=== PATIENT | male | born 1980 | race Caucasian/White ===

== ENCOUNTER 2020-01-07 10:16 | Outpatient (CLI) | payer MEDICARE, SELFPAY ==
[2020-01-07 10:58] LABS: Basophils Absolute Auto 0.03 K/mm3 (0.00-0.10); Basophils Percent Auto 0.4 % (0.0-1.0); Eosinophils Absolute Auto 0.07 K/mm3 (0.02-0.50); Hematocrit 37.9 % (40.0-54.0); Hemoglobin 12.6 g/dL (14.0-18.0); Immature Granulocyte Absolute 0.03 K/mm3 (0.00-0.00); Immature Granulocyte Percent A 0.4 % (0.0-0.0); Lymphocytes Absolute Auto 0.96 K/mm3 (1.10-4.50); Lymphocytes Percent Auto 13.4 % (18.0-42.0); Mean Corpuscular HGB Conc 33.2 g/dL (32.0-36.0); Mean Corpuscular Hemoglobin 30.9 pg (27.0-31.0); Mean Corpuscular Volume 92.9 fL (78.0-102.0); Mean Platelet Volume 8.8 fl (8.7-11.0); Monocytes Absolute Auto 0.48 K/mm3 (0.10-0.90); Monocytes Percent Auto 6.7 % (2.0-11.0); Neutrophils Absolute Auto 5.6 K/mm3 (1.7-7.2); Neutrophils Percent Auto 78.1 % (50.0-70.0); Platelet Count Result 226 K/mm3 (150-420); Red Blood Count 4.08 M/mm3 (4.70-6.10); Red Cell Distribution Width 17.2 % (11.6-14.4); White Blood Count 7.2 K/mm3 (4.8-10.8)
[2020-01-07 11:33] LABS: Alanine Aminotransferase 30 U/L (16-63); Albumin Level 3.8 g/dL (3.4-5.0); Alkaline Phosphatase 75 U/L (46-116); Anion Gap 17.3 mmol/L (7-16); Aspartate Amino Transferase 67 U/L (15-37); Bilirubin,Total 0.7 mg/dL (0.00-1.00); Blood Urea Nitrogen 10 mg/dL (7-18); Calcium 9.2 mg/dL (8.5-10.1); Carbon Dioxide 24 mmol/L (21-32); Chloride 95 mmol/L (98-108); Estimated Glomerular Filt Rate > 60; Glucose 87 mg/dL (70-99); Lactate Dehydrogenase 167 U/L (85-227); Osmolality Calculated 272 mOsm/kg (285-295); Potassium 4.3 mmol/L (3.5-5.1); Sodium 132 mmol/L (136-145); Total Protein 7.7 g/dL (6.4-8.2)
[2020-01-11 03:38] LABS: HCG Tumor Marker <2 mIU/mL (<5)
[2020-01-13 20:57] LABS: Alpha Fetoprotein Tumor Marker 2.3 ng/mL (<6.1)
== END 2020-01-07 10:17 | disposition home or self-care (01) ==
LOC: CHSLAB 10:21
PROVIDERS: PCP Family Medicine; Visit Provider Internal Medicine Hematology & Oncology
DX: C62.90 Malignant neoplasm of unspecified testis, unspecified whether descended or undescended (principal)
CPT/HCPCS: 36415; 80053; 82105; 83615; 84702; 85025; 85055

== ENCOUNTER 2021-03-14 12:04 | Outpatient (CLI) | payer MEDICAID, SELFPAY ==
--- NOTE | ~2021-03-14 | XR_ITS ---
XR_CERV2-3V_CR DATE: 03/14/2021 12:58 INDICATION: Neck and back pain since neck and back surgery 4 years ago TECHNIQUE: AP, open-mouth, lateral views COMPARISON: 06/11/2017 CT cervical spine 03/14/2021 thoracic spine including swimmer's view FINDINGS: There is straightening of the cervical spine. C1 and C2 are normally aligned and the odontoid process is intact. Normal alignment of the cervical spine. No fracture or dislocation or locked facet. There is moderate degenerative disc disease and associated mild retrolisthesis at C5-6. IMPRESSION: Moderate C5-6 degenerative disc disease with mild retrolisthesis Straightening Reviewed, dictated and finalized at [facility]. Reviewed, dictated and finalized at location [facility].
--- NOTE | ~2021-03-14 | XR_ITS ---
XR thoracic spine 3V DATE: 03/14/2021 12:58 INDICATION: Back pain since neck and back surgery 4 years ago TECHNIQUE: AP, lateral, swimmer views COMPARISON: 12/24/2017 CT thorax abdomen pelvis 03/14/2021 lumbar spine FINDINGS: Bilateral thoracic spinal rods extend from T6 into the lumbar spine. Mild levoscoliosis of the thoracolumbar spine. Interbody prosthesis and plate and screws provide surgical fusion at T11-L1, bridging vertebra plana at T12. Chronic T8 compression fracture deformity. No interval fracture or bone destruction is evident. No paraspinal soft tissue thickening is noted. Right Port-A-Cath catheter tip overlies upper right atrium. IMPRESSION: Chronic stable T8 compression fracture Bilateral thoracolumbar spinal rods and T11-L1 surgical fusion, bridging T12 vertebra plana Reviewed, dictated and finalized at location [facility]. IMPRESSION: Chronic stable T8 compression fracture Bilateral thoracolumbar spinal rods and T11-L1 surgical fusion, bridging T12 ve rtebra plana
--- NOTE | ~2021-03-14 | XR_ITS ---
XR lumbar spine 2-3V DATE: 03/14/2021 12:58 INDICATION: Back pain since neck and back surgery 4 years ago TECHNIQUE: AP, lateral, coned lateral lumbosacral views COMPARISON: 03/14/2017 thoracic spine 12/24/2017 CT thorax abdomen pelvis There is some lucency surrounding the pedicle screws at L2 and L3 which may indicate some loosening. FINDINGS: Bilateral spinal rods extend from the thoracic spine to L3. Status post surgical fusion at T11-L1, bridging vertebra plana T12. Moderate compression fracture of L2. Moderate degenerative disc disease at L4-5. Minimal lumbar dextroscoliosis. No recent fracture or bone destruction. The sacroiliac joints are intact. IVC filter at L2 level. IMPRESSION: Thoracolumbar spinal rods and pedicle screws; lucency surrounding the pedicle screws at L 2 and L3 may indicate loosening Status post surgical fusion at T11-T12, bridging vertebra plana at T12 Moderate degenerative disc disease at L4-5 Diffuse osteopenia Minimal dextroscoliosis Reviewed, dictated and finalized at location [facility]. IMPRESSION: Thoracolumbar spinal rods and pedicle screws; lucency surrounding t he pedicle screws at L2 and L3 may indicate loosening Status post surgical fusion at T11-T12, bridging vertebra plana at T12 Moderate degenerative disc disease at L4-5 Diffuse osteopenia Minimal dextroscoliosis
== END 2021-03-14 12:05 | disposition home or self-care (01) ==
LOC: CHSIMG 12:08
PROVIDERS: PCP Family Medicine; Visit Provider Physician Assistant
DX: M54.9 Dorsalgia, unspecified (principal)
CPT/HCPCS: 72040; 72072; 72100

== ENCOUNTER 2021-06-22 08:13 | Inpatient (IN) | payer MEDICAID, SELFPAY ==
--- NOTE | ~2021-06-22 | CT_ITS ---
EXAMINATION: CTA chest PE protocol DATE: 06/22/2021 11:00 INDICATION: Cough and shortness of breath. Testicular cancer. TECHNIQUE: Computed tomography angiography (CTA) of the chest was performed with 100 mL Omnipaque-350 intravenous contrast timed to evaluate the pulmonary arteries. Coronal maximum intensity projection 3D-reconstructions were created by the technologist. Automated exposure control and iterative reconst ruction technique were employed. The dose-length product was 260.84 mGy-cm. COMPARISON: Chest CT 12/24/2017, 07/21/15 FINDINGS: There are small scattered chronic small airspace and groundglass opacities in right lung wi th architectural distortion, consistent with scarring. There is a chronic nodule with central calcifi cation in perihilar right upper lobe, consistent with scarring from treated metastatic disease. There is chronic pleural thickening in right posterior costophrenic angle. No pleural effusion. The heart size is normal. No pericardial effusion. There is no pulmonary embolus. There is a chronic 9 mm mass of peripherally calcified thrombus in right superior pulmonary vein. There is bilateral gynecomastia. There is a right internal jugular port with tip at superior cavoatrial junction. There is fluid in t he esophagus. There is diffuse hepatic steatosis. There are gallstones in the gallbladder. There is f at stranding around the pancreas. There are changes of posterior fusion procedure from T6 to the lumb ar spine. There is lucency around the pedicle screws in T6, T7, T9, and T10. There is a chronic burst fracture of T8 with 3/5 loss of height. There is a chronic compression fracture of T7 with 1/5 loss of height. There is a chronic compression fracture of T11 with 2/5 loss of height. There are changes of anterior fusion procedure from T11 to L1 with device between T11 and L1 and left-sided plate and s crews. IMPRESSION: 1. Partially visualized fat stranding around the pancreas, likely pancreatitis. 2. No pulmonary embolus. 3. Stable multifocal scarring in right lung. 4. Chronic calcified thrombus in right superior pulmonary vein. 5. Posterior fusion procedure in thoracolumbar spine with worsened lucencies around the pedicle screw s in thoracic spine, consistent with loosening versus infection. Reviewed, dictated and finalized at location A. IMPRESSION: 1. Partially visualized fat stranding around the pancreas, likely pancreatitis. 2. No pulmonary embolus. 3. Stable multifocal scarring in right lung. 4. Chronic calcified thrombus in right superior pulmonary vein. 5. Posterior fusion procedure in thoracolumbar spine with worsened lucencies ar ound the pedicle screws in thoracic spine, consistent with loosening versus inf ection.
--- NOTE | ~2021-06-22 | XR_ITS ---
EXAMINATION: XR chest 1V portable EXAM DATE: 06/22/2021 09:41 INDICATION: Cough, nausea vomiting, weakness. Symptoms 3 days. Possible COVID pneumonia. TECHNIQUE: Portable AP frontal chest x-ray was obtained. Comparison is made to prior examination from 06/11/2017. FINDINGS: Right-sided portacatheter. Thoracolumbar Jimenez rods. Right lung volume loss, likely co mbination of partial pneumonectomy and scarring. No discrete right lung nodules/masses less well appr eciated on this examination. Left lung is clear, no evidence of acute airspace disease. No pneumothor ax or pleural effusion. IMPRESSION: Chronic appearing lung findings. Reviewed, dictated and finalized at location A.
[2021-06-22 08:25] VITALS: BP 120/88; PULSE 120; RESP 20; TEMP 36.6; O2SAT 98
--- NOTE | 2021-06-22 08:45 | ECG_ITS ---
Measurements Intervals [place] Rate: 127 P: 32 AL: 204 QRS: 54 QRSD: 80 T: 30 QT: 398 QTc: 581 Interpretive Statements SINUS TACHYCARDIA MINIMAL Q WAVES- INFERIOR LEADS BORDERLINE ST ABNORMALITY- ANTERIOR LEADS BASELINE ARTIFACT- I, II, III, AVR, AVL, AVF, V5-V6 ABNORMAL ECG Electronically Signed On 06-22-2021 13:00:51 CDT by Enrico Case D.O.
--- NOTE | 2021-06-22 08:48 | PC.NURSE ---
RN CONTACTED PCP OFFICE AT THIS TIME TO REQUEST PMH, PSH, AND MEDICATION LIST
[2021-06-22] MEDS: SODIUM CHLORIDE 0.9% IV 1,000 ML 999 ML IV CONT ×2 (09:20→14:11)
[2021-06-22] MEDS: ONDANSETRON INJ 4 MG/2 ML VIAL IV PUSH ×2 (09:20→14:18)
[2021-06-22 09:33] LABS: Basophils Absolute Auto 0.02 K/mm3 (0.00-0.10); Basophils Percent Auto 0.1 % (0.0-1.0); Hematocrit 35.7 % (40.0-54.0); Hemoglobin 11.6 g/dL (14.0-18.0); Immature Granulocyte Absolute 0.07 K/mm3 (0.00-0.00); Immature Granulocyte Percent A 0.4 % (0.0-0.0); Lymphocytes Absolute Auto 0.52 K/mm3 (1.10-4.50); Lymphocytes Percent Auto 3.1 % (18.0-42.0); Mean Corpuscular HGB Conc 32.5 g/dL (32.0-36.0); Mean Corpuscular Hemoglobin 33.2 pg (27.0-31.0); Mean Corpuscular Volume 102.3 fL (78.0-102.0); Mean Platelet Volume 9.8 fl (8.7-11.0); Monocytes Absolute Auto 0.33 K/mm3 (0.10-0.90); Neutrophils Absolute Auto 15.7 K/mm3 (1.7-7.2); Neutrophils Percent Auto 94.4 % (50.0-70.0); Nucleated Red Blood Cells Absolute Auto 0.04 K/mm3 (0.00-0.00); Nucleated Red Blood Cells Perc 0.2 % (0-0.0); Platelet Count Result 354 K/mm3 (150-420); Red Blood Count 3.49 M/mm3 (4.70-6.10); Red Cell Distribution Width 23.3 % (11.6-14.4); White Blood Count 16.7 K/mm3 (4.8-10.8)
[2021-06-22 09:51] LABS: D Dimer 1.07 mg/L (0.19-0.50)
[2021-06-22 09:52] LABS: SARS-CoV-2 Ag Negative (Negative)
[2021-06-22 09:54] LABS: Alanine Aminotransferase 36 U/L (16-63); Albumin Level 3.5 g/dL (3.4-5.0); Alkaline Phosphatase 139 U/L (46-116); Anion Gap 24 mmol/L (8-16); Aspartate Amino Transferase 104 U/L (15-37); Bilirubin,Total 2.6 mg/dL (0.00-1.00); Blood Urea Nitrogen 11 mg/dL (7-18); Calcium 9.7 mg/dL (8.5-10.1); Carbon Dioxide 30 mmol/L (21-32); Chloride 87 mmol/L (98-108); Estimated CRCL calculation 72 ml/min; Estimated Glomerular Filt Rate > 60; Glucose 133 mg/dL (70-99); NT Pro B Type Natriuretic Pept 2763 pg/mL (0-125); Osmolality Calculated 293 mOsm/kg (285-295); Potassium 2.6 mmol/L (3.5-5.1); Sodium 141 mmol/L (136-145); Total Protein 8.9 g/dL (6.4-8.2)
[2021-06-22] MEDS: PROMETHAZINE HCL 25 MG/ML AMPUL IM (09:55)
[2021-06-22 10:15] LABS: Lactic Acid Reflex 3.3 mmol/L (0.4-2.0)
--- NOTE | 2021-06-22 10:23 | ED.GENADULT ---
HPI - General Adult General Chief complaint: Upper Respiratory Infection Stated complaint: SOB VOMITING COUGH Source: patient Mode of arrival: ambulatory Limitations: no limitations History of Present Illness HPI narrative: Pt presents with complaints of cough, SOB, vomiting and feeling ill. He has not had fever. He has significant health issues, including stage 4 testicular cancer which has been in remission for several years. However, he has mets all over, and spinal issues from these, so he is very limited in his daily function. He is alert, but gagging and vomiting and coughing frequently. Onset (ago): day(s) (2) Quality: aching (generalized myaglias, mostly from vomiting) Pain Consistency: constant Relieving factors: none Exacerbating factors: none Associated symptoms: cough, loss of appetite, malaise, nausea/vomiting, shortness of breath and weakness Related Data Allergies Allergy/AdvReac Type Severity Reaction Status Date / Time nut - unspecified Allergy Anaphylaxis Verified 06/22/21 09:48 Penicillins Allergy Unknown Verified 06/22/21 09:48 Review of Systems Constitutional: Constitutional: Reports fatigue and Reports weakness Eyes: Eyes: Reports no additional eye complaints ENT: Reports nasal congestion and Reports sore throat Cardiovascular: Cardiovascular: Reports rapid heart rate Respiratory: Respiratory: Reports cough and Reports dyspnea Gastrointestinal: Gastrointestinal: Reports nausea and Reports vomiting Genitourinary: Genitourinary: Reports no additional male genitourinary complaints Musculoskeletal: Musculoskeletal: Reports back pain and Reports muscle cramps Integumentary/Breasts: Skin/Breast: Reports system reviewed and no additional complaints, except as docu Neurologic: Reports weakness Psychiatric: Psychiatric: Reports no additional psychiatric complaints Endocrine: Endocrine: Reports no additional endocrine complaints Hematologic/Lymphatic: Hematologic/Lymphatic: Reports no additional hematologic/lymphatic complaints Allergic/Immunologic: Allergic/Immunologic: Reports no additional allergic/immunologic complaints [facility] Past Medical History Medical History (Updated 06/22/21 @ 12:56 by Maureen Michael MD) Anxiety Depression HTN (hypertension) Lipoma Presence of IVC filter Pulmonary embolism Testicular cancer Surgical History Surgical History Back pain with history of spinal surgery Family History Family History Other Diabetes mellitus Hypertension Social History Social History (Updated 06/22/21 @ 10:33 by Maureen Michael MD) Smoking status: Never smoker Alcohol intake: never Substance use: never Exam Const: General: no acute distress, alert and ill appearing Nutritional Appearance: thin Orientation/consciousness: patient oriented x3 HENMT: Head: normal to inspection Eyes: Conjunctivae: conjunctivae normal Pupils: Equal, round and reactive pupils present Neck: Neck: normal visual inspection Chest: Chest palpation & inspection: normal inspection of the chest Resp: Effort & Inspection: normal respiratory effort Auscultation: clear to auscultation bilaterally Cardio: Rate: tachycardic Rhythm: regular rhythm GI: GI Palp: Yes Soft to palpation, No Tenderness to palpation present (GI), No Guarding due to palpation present (GI) and No Rigid due to palpation Auscultation: normal bowel sounds Skin: General skin exam: normal color Rashes: no rashes Neuro: General: patient oriented x3, moves all extremities, no meningeal signs, no focal motor deficits and CN's II-XI intact bilaterally Speech: normal speech Extrem: General: normal to inspection Psych: Appearance: grossly normal Mental Status: mental status grossly normal Thought content: Yes Normal thought content present Course Course Emergency Course: pt still vo
[2021-06-22 10:30] LABS: SARS-CoV-2 RNA PCR Negative (Negative)
[2021-06-22] MEDS: ACETAMINOPHEN 500 MG TABLET 1000 MG PO (10:33)
[2021-06-22 12:28] LABS: Lipase 3643 U/L (73-393)
--- NOTE | 2021-06-22 12:44 | PC.NURSE ---
RN REQUESTED ROOM FOR INPATIENT STATUS. SUSTAINABILITY OFFICER JESICA PROVIDED ROOM 227. REGISTRATION NOTIFIED.
[2021-06-22 12:56] LABS: Reflex Lactic Acid Yes or No Add Lactic
[2021-06-22] MEDS: ENOXAPARIN 40 MG/0.4 ML SYRINGE SUB-Q (13:00)
[2021-06-22 13:03] LABS: Erythrocyte Sedimentation Rate 48 mm/hr (0-15)
--- NOTE | 2021-06-22 13:07 | ECG_ITS ---
Measurements Intervals [place] Rate: 114 P: 71 TX: 166 QRS: 84 QRSD: 81 T: 74 QT: 364 QTc: 502 Interpretive Statements SINUS TACHYCARDIA VENTRICULAR COUPLETS AND VENTRICULAR BIGEMINY NONSPECIFIC T-WAVE ABNORMALITY- INF/LAT LEADS BASELINE ARTIFACT- I, II, III, AVR, AVL, AVF, V1 ABNORMAL ECG Electronically Signed On 06-22-2021 13:23:18 CDT by Enrico Case D.O.
--- NOTE | 2021-06-22 13:26 | PCNDS ---
Patient consumed [ ]% of [f his/her] [ ] diet without complaints status post [ ]. Weight remained stable during stay. [f he/she c] was discharged [ ]
--- NOTE | 2021-06-22 13:26 | PC.NURSE ---
TELEPHONE REPORT PROVIDED TO VANESSA MOONEY RN
[2021-06-22 13:27] LABS: Lactic Acid 1.7 mmol/L (0.4-2.0)
--- NOTE | 2021-06-22 13:29 | PM.IMHP ---
H&P: HPI History of Present Illness Date/Time: 06/22/21 13:29 this is a 41-year-old male that presented to emergency department with complaints of a cough, shortness of breath, vomiting, loss of appetite and decreased fluid intake and fatigue. Patient has a past medical history of anxiety, depression, hypertension, presence of IVC filter, pulmonary embolism, testicle cancer stage IV and metastatic disease. According the to the patient in his mother who is his caregiver for approximately 2 weeks he has been feeling fatigued, with abdominal pain uncontrolled vomiting. Patient does have chronic vomiting that he has had for approximately 5 years following his chemo treatments. Patient is WBC 16.7, hemoglobin 11.6, hematocrit 35.7, platelets 354, sed rate 48, D-dimer 1.07, sodium 141, potassium 2.6, BUN 11, creatinine 1.18, glucose 133, lactic acid 3.3, total bili 2.6, AST 104, ALT 36, BUN 2763, lipase 3643 Covid negative, chest x-ray no new findings, CTA indicates pancreatitis chronic thrombosis worsened lucencies around the pedicle screws in thoracic spine, consistent with loosening versus infection. Patient being admitted for pancreatitis, dehydration and infection. Patient remains fatigued with nausea vomiting and tenderness to his abdominal area Inpatient Time spent 60 minutes Disposition Home with self-care <NAZIA Peraza - Last Filed: 06/22/21 14:04> Chief Complaint: Nausea vomiting abdominal pain <NAZIA Peraza - Last Filed: 06/22/21 14:04> Review of Systems Review of Systems: A 14 organ system Review of Systems was performed and pertinent positives included in the HPI, otherwise remaining ROS is negative. <NAZIA Peraza - Last Filed: 06/22/21 14:04> [facility] Past Medical History Medical History: Medical History (Updated 06/22/21 @ 13:56 by NAZIA Peraza) Anxiety Depression HTN (hypertension) Lipoma Presence of IVC filter Pulmonary embolism Testicular cancer <NAZIA Peraza - Last Filed: 06/22/21 14:04> Surgical History Surgical History: Surgical History Back pain with history of spinal surgery <NAZIA Peraza - Last Filed: 06/22/21 14:04> Family History Family History: Family History Other Diabetes mellitus Hypertension <NAZIA Peraza - Last Filed: 06/22/21 14:04> Social History Social History: Social History (Updated 06/22/21 @ 10:33 by Maureen Michael MD) Smoking status: Never smoker Alcohol intake: former Substance use: unknown Substance use type: marijuana and painkillers Gender identity (if verbalized by the patient): Male Spiritual care concerns: No <NAZIA Peraza - Last Filed: 06/22/21 14:04> Meds Home Medications and Allergies Home medications: Home Medications Medication Instructions Recorded Confirmed Type ondansetron HCl [Zofran] 4 mg PO Q8H PRN 06/22/21 06/22/21 History sertraline 50 mg PO DAILY 06/22/21 06/22/21 History <Octavianodane DerekLYDIA ParkerMariangel - Last Filed: 06/22/21 14:04> Allergies/Adverse reactions: Allergies Allergy/AdvReac Type Severity Reaction Status Date / Time nut - unspecified Allergy Anaphylaxis Verified 06/22/21 09:48 Penicillins Allergy Unknown Verified 06/22/21 09:48 <LYDIA PerazaTennilleElijah - Last Filed: 06/22/21 14:04> Vital Signs Vital Signs - 24 hr 06/22/21 08:25 Temperature 98 F Pulse Rate 120 H Respiratory Rate 20 Blood Pressure 120/88 Pulse Oximetry 98 <Susan DerekLYDIA ParkerTennille - Last Filed: 06/22/21 14:04> Exam Narrative: GENERAL: Malnutrition ill appearance male, in no apparent distress. HEAD: normocephalic, atraumatic. EYES: PERRL. Sclera clear/white. Vision is grossly intact. EARS: External ears normal, auditory canals clear and without drainage, TMs normal without perfor
[2021-06-22 13:34] VITALS: BP 125/83; PULSE 106; RESP 18; O2SAT 100
[2021-06-22] MEDS: HYDROmorphone HCL INJ (*CRX) 2 MG/ML VIAL 0.5 MG IV PUSH ×3 (14:19→21:22)
[2021-06-22] MEDS: KCL 20 MEQ/SW 100 ML 100 ML 50 MEQ IVPB ×3 (14:22→23:52)
[2021-06-22] MEDS: SODIUM CHLORIDE 0.9% IV 1,000 ML 100 ML IV CONT (15:22)
[2021-06-22] MEDS: PANTOPRAZOLE SODIUM IV 40 MG VIAL IV PUSH (15:39)
[2021-06-22 16:00] VITALS: BP 117/84; PULSE 125; PULSE 128; RESP 18; TEMP 36.3; O2SAT 99
[2021-06-22] MEDS: METOCLOPRAMIDE HCL INJ 10 MG/2 ML VIAL IV PUSH ×2 (17:19→23:37)
--- NOTE | 2021-06-22 18:42 | PC.NURSE ---
18:40 Patient reports to drink 3-4 glasses of wine or vodka about 4-5 times per week. --Bert CANO
[2021-06-22 20:00] VITALS: BP 127/88; PULSE 138; RESP 20; TEMP 36.3; O2SAT 99
[2021-06-22 20:28] LABS: Amphetamine Screen Urine Negative (Negative); Barbiturate Screen Urine Negative (Negative); Benzodiazepines Screen Urine Negative (Negative); Cannabinoid Screen Urine Negative (Negative); Cocaine Screen Urine Negative (Negative); Methadone Screen Urine Negative (Negative); Opiate Screen Urine Positive (Negative); Phencyclidine Screen Urine Negative (Negative)
[2021-06-22] MEDS: diphenhydrAMINE HCl INJ 50 MG/ML VIAL 25 MG IV PUSH (21:00)
--- NOTE | 2021-06-22 22:45 | PC.NURSE ---
[id number] Nurse attempted to notify MD of current K+ level 3.0. MD in ER patient's room.
[2021-06-22] MEDS: SODIUM CHLORIDE 0.9% IV 1,000 ML 150 ML IV CONT (23:39)
[2021-06-22 23:47] VITALS: BP 120/91; PULSE 120; RESP 18; TEMP 36.7; O2SAT 97
[2021-06-23] MEDS: HYDROmorphone HCL INJ (*CRX) 2 MG/ML VIAL 0.5 MG IV PUSH ×5 (00:27→20:14)
[2021-06-23] MEDS: KCL 20 MEQ/SW 100 ML 100 ML 50 MEQ IVPB (02:00)
[2021-06-23 04:00] VITALS: BP 123/92; PULSE 114; RESP 18; TEMP 36.2; O2SAT 98
[2021-06-23 05:18] LABS: Hematocrit 28.2 % (40.0-54.0); Hemoglobin 9.3 g/dL (14.0-18.0); Mean Platelet Volume 9.8 fl (8.7-11.0); Platelet Count Result 147 K/mm3 (150-420); Red Blood Count 2.66 M/mm3 (4.70-6.10); Red Cell Distribution Width 23.3 % (11.6-14.4); White Blood Count 8.7 K/mm3 (4.8-10.8)
[2021-06-23 05:36] LABS: Lactic Acid Reflex 0.7 mmol/L (0.4-2.0)
[2021-06-23 05:40] LABS: Alanine Aminotransferase 26 U/L (16-63); Albumin Level 2.5 g/dL (3.4-5.0); Alkaline Phosphatase 92 U/L (46-116); Anion Gap 12 mmol/L (8-16); Aspartate Amino Transferase 56 U/L (15-37); Blood Urea Nitrogen 10 mg/dL (7-18); Calcium 7.8 mg/dL (8.5-10.1); Carbon Dioxide 31 mmol/L (21-32); Chloride 99 mmol/L (98-108); Estimated CRCL calculation 86 ml/min; Estimated Glomerular Filt Rate > 60; Glucose 67 mg/dL (70-99); Magnesium 1.1 mg/dL (1.8-2.4); Osmolality Calculated 291 mOsm/kg (285-295); Potassium 3.7 mmol/L (3.5-5.1); Sodium 142 mmol/L (136-145); Total Protein 6.6 g/dL (6.4-8.2)
[2021-06-23] MEDS: METOCLOPRAMIDE HCL INJ 10 MG/2 ML VIAL IV PUSH ×3 (05:51→16:32)
[2021-06-23 05:54] LABS: Lipase > 1500 U/L (73-393)
[2021-06-23] MEDS: SODIUM CHLORIDE 0.9% IV 1,000 ML 150 ML IV CONT ×3 (07:40→23:33)
[2021-06-23 08:00] VITALS: BP 118/96; PULSE 117; PULSE 123; RESP 16; TEMP 36.8; O2SAT 96
--- NOTE | 2021-06-23 09:01 | P.PN_ITS ---
Progress Note: A&P Assessment and Plan (1) Acute pancreatitis: Qualifiers: Acute pancreatitis complication: unspecified Pancreatitis type: alcohol induced Qualified Code(s): K85.20 - Alcohol induced acute pancreatitis without necrosis or infection Code(s): K85.90 - Acute pancreatitis without necrosis or infection, unspecified Status: Acute Assessment and Plan: * CT indicates pancreatitis * Continue IV hydration * Continue pain control * Lipase 3643>-->1500 * Repeat lipase in the a.m. * Remain n.p.o. we will advance diet when appropriate * According to family member patient has a history of alcohol use (2) HTN (hypertension): Code(s): I10 - Essential (primary) hypertension Status: Acute Assessment and Plan: * Blood pressure stable * Vital signs as ordered * Will adjust medication as needed (3) Hypokalemia: Code(s): E87.6 - Hypokalemia Status: Acute Assessment and Plan: * Potassium 2.6>3.0>3.7 * Or potassium 40 mEq x2 * Repeat potassium in the a.m. (4) Elevated WBCs: Code(s): D72.829 - Elevated white blood cell count, unspecified Status: Acute Assessment and Plan: * WBC 16.7>8.7 * Possibly secondary to infection versus pancreatitis * CMP in a.m. * Continue Rocephin and azithromycin day 2 * Blood culture pending (5) Elevated d-dimer: Code(s): R79.89 - Other specified abnormal findings of blood chemistry Status: Acute Assessment and Plan: * D-dimer 1.07 * CTA does not indicate PE * Patient has a history of PE * IVC filter in place (6) Elevated lactic acid level: Code(s): R79.89 - Other specified abnormal findings of blood chemistry Status: Acute Assessment and Plan: * Lactic acid3.3>1.7>0.7 * Possibly secondary to infection * Will continue IV fluids (7) Elevated AST (SGOT): Code(s): R74.01 - Elevation of levels of liver transaminase levels Status: Acute Assessment and Plan: * AST 104>56 * Possibly secondary to dehydration versus pancreatitis * We will closely monitor liver function test * According to family member patient has a history of alcohol use (8) Elevated brain natriuretic peptide (BNP) level: Code(s): R79.89 - Other specified abnormal findings of blood chemistry Status: Acute Assessment and Plan: * Elevated BNP 2763 * Chest x-ray does not indicate pulmonary embolism * We will closely monitor I's and O's (9) Thrombosis: Code(s): I82.90 - Acute embolism and thrombosis of unspecified vein Status: Acute Assessment and Plan: * 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 * Blood cultures pending * Continue Rocephin and azithromycin for possible infection * If hardware is loose patient will need to follow-up with orthopedic surgeon (11) Anxiety and depression: Code(s): F41.9 - Anxiety disorder, unspecified; F32.9 - Major depressive disorder, single episode, unspecified Status: Acute Assessment and Plan: * Started Ativan (12) Nausea & vomiting: Code(s): R11.2 - Nausea with vo
--- NOTE | 2021-06-23 09:01 | WPDPN ---
Progress Note: A&P Assessment and Plan (1) Acute pancreatitis: Qualifiers: Acute pancreatitis complication: unspecified Pancreatitis type: alcohol induced Qualified Code(s): K85.20 - Alcohol induced acute pancreatitis without necrosis or infection Code(s): K85.90 - Acute pancreatitis without necrosis or infection, unspecified Status: Acute Assessment and Plan: CT indicates pancreatitis Continue IV hydration Continue pain control Lipase 3643>-->1500 Repeat lipase in the a.m. Remain n.p.o. we will advance diet when appropriate According to family member patient has a history of alcohol use (2) HTN (hypertension): Code(s): I10 - Essential (primary) hypertension Status: Acute Assessment and Plan: Blood pressure stable Vital signs as ordered Will adjust medication as needed (3) Hypokalemia: Code(s): E87.6 - Hypokalemia Status: Acute Assessment and Plan: Potassium 2.6>3.0>3.7 Or potassium 40 mEq x2 Repeat potassium in the a.m. (4) Elevated WBCs: Code(s): D72.829 - Elevated white blood cell count, unspecified Status: Acute Assessment and Plan: WBC 16.7>8.7 Possibly secondary to infection versus pancreatitis CMP in a.m. Continue Rocephin and azithromycin day 2 Blood culture pending (5) Elevated d-dimer: Code(s): R79.89 - Other specified abnormal findings of blood chemistry Status: Acute Assessment and Plan: D-dimer 1.07 CTA does not indicate PE Patient has a history of PE IVC filter in place (6) Elevated lactic acid level: Code(s): R79.89 - Other specified abnormal findings of blood chemistry Status: Acute Assessment and Plan: Lactic acid3.3>1.7>0.7 Possibly secondary to infection Will continue IV fluids (7) Elevated AST (SGOT): Code(s): R74.01 - Elevation of levels of liver transaminase levels Status: Acute Assessment and Plan: AST 104>56 Possibly secondary to dehydration versus pancreatitis We will closely monitor liver function test According to family member patient has a history of alcohol use (8) Elevated brain natriuretic peptide (BNP) level: Code(s): R79.89 - Other specified abnormal findings of blood chemistry Status: Acute Assessment and Plan: Elevated BNP 2763 Chest x-ray does not indicate pulmonary embolism We will closely monitor I's and O's (9) Thrombosis: Code(s): I82.90 - Acute embolism and thrombosis of unspecified vein Status: Acute Assessment and Plan: 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 Blood cultures pending Continue Rocephin and azithromycin for possible infection If hardware is loose patient will need to follow-up with orthopedic surgeon (11) Anxiety and depression: Code(s): F41.9 - Anxiety disorder, unspecified; F32.9 - Major depressive disorder, single episode, unspecified Status: Acute Assessment and Plan: Started Ativan (12) Nausea & vomiting: Code(s): R11.2 - Nausea with vomiting, unspecified Status: Acute Assessment and Plan: Chronic Possibly worsening due to pancreatitis Started Zofran and Reglan Will continue IV fluids (13) Electrolyte imbalance: Code(s): E87.8 - Other disorders of electrolyte and fluid balance, not elsewhere classified Status: Acute Assessment and Plan: Magnesium 1.1 Supplement given Will repeat (14) Tachycardia: Code(s): R00.0 - Tachycardia, uns
[2021-06-23] MEDS: ENOXAPARIN 40 MG/0.4 ML SYRINGE SUB-Q (09:12)
[2021-06-23] MEDS: PANTOPRAZOLE SODIUM IV 40 MG VIAL IV PUSH (09:16)
[2021-06-23] MEDS: MAGNESIUM SULF 4 GM/WATER100ML 4 GM/100 ML BAG IVPB (09:24)
[2021-06-23 12:00] VITALS: BP 113/76; PULSE 110; PULSE 122; RESP 16; TEMP 36.6; O2SAT 100
[2021-06-23 16:00] VITALS: BP 107/91; PULSE 111; PULSE 116; RESP 16; TEMP 36.8; O2SAT 100
[2021-06-23 20:00] VITALS: BP 141/104; PULSE 112; PULSE 114; RESP 22; TEMP 36.6; O2SAT 99
[2021-06-23] MEDS: diphenhydrAMINE HCl INJ 50 MG/ML VIAL 25 MG IV PUSH (20:14)
[2021-06-24] VITALS: BP 133/94; PULSE 104; PULSE 105; RESP 18; TEMP 36.4; O2SAT 99
[2021-06-24] MEDS: METOCLOPRAMIDE HCL INJ 10 MG/2 ML VIAL IV PUSH ×4 (01:38→16:58)
[2021-06-24] MEDS: HYDROmorphone HCL INJ (*CRX) 2 MG/ML VIAL 0.5 MG IV PUSH ×4 (01:42→20:51)
--- NOTE | 2021-06-24 02:10 | PC.NURSE ---
Patient rounding and reassessment of pain completed. Patient is sleeping comfortably, without any pain indicators, such as moaning or grimacing.
[2021-06-24 04:00] VITALS: BP 125/92; PULSE 100; PULSE 105; RESP 18; TEMP 36.4; O2SAT 100
[2021-06-24 05:17] LABS: Hematocrit 24.1 % (40.0-54.0); Hemoglobin 7.6 g/dL (14.0-18.0); Immature Platelet Fraction Pct 1.6 % (1.0-7.0); Mean Corpuscular HGB Conc 31.5 g/dL (32.0-36.0); Mean Corpuscular Hemoglobin 33.9 pg (27.0-31.0); Mean Corpuscular Volume 107.6 fL (78.0-102.0); Mean Platelet Volume 8.6 fl (8.7-11.0); Platelet Count Result 84 K/mm3 (150-420); Red Blood Count 2.24 M/mm3 (4.70-6.10); Red Cell Distribution Width 22.7 % (11.6-14.4); White Blood Count 5.5 K/mm3 (4.8-10.8)
[2021-06-24 05:32] LABS: Alanine Aminotransferase 23 U/L (16-63); Albumin Level 2.1 g/dL (3.4-5.0); Alkaline Phosphatase 74 U/L (46-116); Anion Gap 7 mmol/L (8-16); Aspartate Amino Transferase 37 U/L (15-37); Bilirubin,Total 0.9 mg/dL (0.00-1.00); Blood Urea Nitrogen 9 mg/dL (7-18); Calcium 7.6 mg/dL (8.5-10.1); Carbon Dioxide 32 mmol/L (21-32); Chloride 100 mmol/L (98-108); Estimated CRCL calculation 107 ml/min; Estimated Glomerular Filt Rate > 60; Glucose 69 mg/dL (70-99); Lipase 936 U/L (73-393); Magnesium 1.8 mg/dL (1.8-2.4); Osmolality Calculated 284 mOsm/kg (285-295); Potassium 3.1 mmol/L (3.5-5.1); Sodium 139 mmol/L (136-145); Total Protein 5.9 g/dL (6.4-8.2)
--- NOTE | 2021-06-24 05:59 | PC.NURSE ---
Doctor notified labs. Order received to give patient clear liquids and advance as tolerated.
[2021-06-24] MEDS: SODIUM CHLORIDE 0.9% IV 1,000 ML 150 ML IV CONT (06:30)
--- NOTE | 2021-06-24 07:23 | PC.NURSE ---
Bladder scan completed approximately 200-340 ml
--- NOTE | 2021-06-24 07:40 | P.PN_ITS ---
Progress Note: A&P Assessment and Plan (1) Acute pancreatitis: Qualifiers: Acute pancreatitis complication: unspecified Pancreatitis type: alcohol induced Qualified Code(s): K85.20 - Alcohol induced acute pancreatitis without necrosis or infection <NAZIA Peraza - Last Filed: 06/24/21 11:14> Code(s): K85.90 - Acute pancreatitis without necrosis or infection, unspecified <NAZIA Peraza - Last Filed: 06/24/21 11:14> Status: Acute <NAZIA Peraza - Last Filed: 06/24/21 11:14> Assessment and Plan: * CT indicates pancreatitis * Continue IV hydration * Continue pain control * Lipase 3643>-->1500>936 * Repeat lipase in the a.m. * Patient advance to a clear liquid diet * According to family member patient has a history of alcohol use <NAZIA Peraza - Last Filed: 06/24/21 11:14> (2) HTN (hypertension): Code(s): I10 - Essential (primary) hypertension <NAZIA Peraza - Last Filed: 06/24/21 11:14> Status: Acute <NAZIA Peraza - Last Filed: 06/24/21 11:14> Assessment and Plan: * Blood pressure stable * Vital signs as ordered * Will adjust medication as needed <NAZIA Peraza - Last Filed: 06/24/21 11:14> (3) Hypokalemia: Code(s): E87.6 - Hypokalemia <Susan Silverio FÉLIXC - Last Filed: 06/24/21 11:14> Status: Acute <Susan Silverio NAZIA - Last Filed: 06/24/21 11:14> Assessment and Plan: * Potassium 2.6>3.0>3.7 * Or potassium 40 mEq x2 * Repeat potassium in the a.m. <Susan Silverio NAZIA - Last Filed: 06/24/21 11:14> (4) Elevated WBCs: Code(s): D72.829 - Elevated white blood cell count, unspecified <NAZIA Peraza - Last Filed: 06/24/21 11:14> Status: Acute <NAZIA Peraza - Last Filed: 06/24/21 11:14> Assessment and Plan: * Resolved * WBC 16.7>8.7>5.5 * Possibly secondary to infection versus pancreatitis * CMP in a.m. * Continue Rocephin and azithromycin * Blood culture preliminary no growth <NAZIA Peraza - Last Filed: 06/24/21 11:14> (5) Elevated d-dimer: Code(s): R79.89 - Other specified abnormal findings of blood chemistry <NAZIA Peraza - Last Filed: 06/24/21 11:14> Status: Acute <NAZIA Peraza - Last Filed: 06/24/21 11:14> Assessment and Plan: * D-dimer 1.07 * CTA does not indicate PE * Patient has a history of PE * IVC filter in place <NAZIA Peraza - Last Filed: 06/24/21 11:14> (6) Elevated lactic acid level: Code(s): R79.89 - Other specified abnormal findings of blood chemistry <NAZIA Peraza - Last Filed: 06/24/21 11:14> Status: Acute <NAZIA Peraza - Last Filed: 06/24/21 11:14> Assessment and Plan: * Resolved * Lactic acid3.3>1.7>0.7 * Possibly secondary to infection * Will continue IV fluids <NAZIA Peraza - Last Filed: 06/24/21 11:14> (7) Elevated AST (SGOT): Code(s): R74.01 - Elevation of levels of liver transaminase levels <NAZIA Peraza - Last Filed: 06/24/21 11:14> Status: Acute <NAZIA Peraza - Last Filed: 06/24/21 11:14> Assessment and Plan: * Resolved * AST 104>56 within normal limits> * Possibly secondary to dehydration versus pancreatitis * We will closely monitor liver function test * According to family member patient has a history of alcohol use <Susan Silverio, LYDIA-C - Last Filed: 06/24/
--- NOTE | 2021-06-24 07:40 | WPDPN ---
Progress Note: A&P Assessment and Plan (1) Acute pancreatitis: Qualifiers: Acute pancreatitis complication: unspecified Pancreatitis type: alcohol induced Qualified Code(s): K85.20 - Alcohol induced acute pancreatitis without necrosis or infection <Susan Silverio NAZIA - Last Filed: 06/24/21 11:14> Code(s): K85.90 - Acute pancreatitis without necrosis or infection, unspecified <Susan Silverio NAIZA - Last Filed: 06/24/21 11:14> Status: Acute <NAZIA Peraza - Last Filed: 06/24/21 11:14> Assessment and Plan: CT indicates pancreatitis Continue IV hydration Continue pain control Lipase 3643>-->1500>936 Repeat lipase in the a.m. Patient advance to a clear liquid diet According to family member patient has a history of alcohol use <Susan Silverio NAZIA - Last Filed: 06/24/21 11:14> (2) HTN (hypertension): Code(s): I10 - Essential (primary) hypertension <Susan Silverio FÉLIXC - Last Filed: 06/24/21 11:14> Status: Acute <Susan Silverio NAZIA - Last Filed: 06/24/21 11:14> Assessment and Plan: Blood pressure stable Vital signs as ordered Will adjust medication as needed <Susan Silverio NAZIA - Last Filed: 06/24/21 11:14> (3) Hypokalemia: Code(s): E87.6 - Hypokalemia <Susan Silverio NAZIA - Last Filed: 06/24/21 11:14> Status: Acute <Susan Silverio NAZIA - Last Filed: 06/24/21 11:14> Assessment and Plan: Potassium 2.6>3.0>3.7 Or potassium 40 mEq x2 Repeat potassium in the a.m. <Susan Silverio NAZIA - Last Filed: 06/24/21 11:14> (4) Elevated WBCs: Code(s): D72.829 - Elevated white blood cell count, unspecified <Susan Silverio [employer]-C - Last Filed: 06/24/21 11:14> Status: Acute <FÉLIX PerazaC - Last Filed: 06/24/21 11:14> Assessment and Plan: Resolved WBC 16.7>8.7>5.5 Possibly secondary to infection versus pancreatitis CMP in a.m. Continue Rocephin and azithromycin Blood culture preliminary no growth <FÉLIX PerazaC - Last Filed: 06/24/21 11:14> (5) Elevated d-dimer: Code(s): R79.89 - Other specified abnormal findings of blood chemistry <FÉLIX PerazaC - Last Filed: 06/24/21 11:14> Status: Acute <NAZIA Peraza - Last Filed: 06/24/21 11:14> Assessment and Plan: D-dimer 1.07 CTA does not indicate PE Patient has a history of PE IVC filter in place <NAZIA Peraza - Last Filed: 06/24/21 11:14> (6) Elevated lactic acid level: Code(s): R79.89 - Other specified abnormal findings of blood chemistry <FÉLIX PerazaC - Last Filed: 06/24/21 11:14> Status: Acute <NAZIA Peraza - Last Filed: 06/24/21 11:14> Assessment and Plan: Resolved Lactic acid3.3>1.7>0.7 Possibly secondary to infection Will continue IV fluids <NAZIA Peraza - Last Filed: 06/24/21 11:14> (7) Elevated AST (SGOT): Code(s): R74.01 - Elevation of levels of liver transaminase levels <FÉLIX PerazaC - Last Filed: 06/24/21 11:14> Status: Acute <NAZIA Peraza - Last Filed: 06/24/21 11:14> Assessment and Plan: Resolved AST 104>56 within normal limits> Possibly secondary to dehydration versus pancreatitis We will closely monitor liver function test According to family member patient has a history of alcohol use <NAZIA Peraza - Last Filed: 06/24/21 11:14> (8) Elevated brain natriuretic peptide (BNP) level: Code(s): R79.89 - Other specified abnormal findings of blood chemistry <NAZIA Peraza - Last Filed: 06/24/21 11:14> Status: Acute <NAZIA Peraza - Last Filed: 06/24/21 11:14> Assessment and Plan: Elevated BNP 2763 Chest x-ray does not indicate pulmonary emboli
[2021-06-24 07:54] VITALS: BP 121/91; PULSE 111; PULSE 115; RESP 16; TEMP 36.6; O2SAT 100
[2021-06-24] MEDS: POTASSIUM CHLORIDE 20 MEQ TABLET 40 MEQ PO (08:34)
[2021-06-24] MEDS: PANTOPRAZOLE SODIUM IV 40 MG VIAL IV PUSH (08:40)
[2021-06-24 09:32] LABS: Iron 118 ug/dL (65-175); Lactate Dehydrogenase 229 U/L (85-227); Percent Iron Saturation 95 % (12-57)
[2021-06-24 09:56] LABS: Prostate Specific Antigen 0.1 ng/mL (< OR = 4.0)
[2021-06-24 09:56] LABS: Ferritin > 1000 ng/mL (26-388)
[2021-06-24 09:57] LABS: Bilirubin Direct 0.4 mg/dL (0-0.2); Bilirubin,Total 0.8 mg/dL (0.00-1.00); Thyroid Stimulating Hormone Reflex 1.89 u/IU/mL (0.36-3.74)
[2021-06-24] MEDS: polyethylene glycoL 3350 17 GM POWD.PACK PO (10:37)
[2021-06-24 12:00] VITALS: BP 133/102; PULSE 120; PULSE 128; RESP 18; TEMP 36.7; O2SAT 97
[2021-06-24 12:07] LABS: Hematocrit 24.2 % (40.0-54.0); Hemoglobin 7.9 g/dL (14.0-18.0)
[2021-06-24 15:58] VITALS: BP 113/82; PULSE 111; PULSE 118; RESP 16; TEMP 37.1; O2SAT 100
--- NOTE | 2021-06-24 19:20 | PC.NURSE ---
Bedside report completed and board updated. Patient was resting comfortably in bed, and did not need anything additional.
[2021-06-24 20:00] VITALS: BP 119/92; PULSE 111; PULSE 113; RESP 20; TEMP 37.5; O2SAT 97
[2021-06-24] MEDS: guaiFENesin 12 HR 600 MG TABCR PO (20:47)
[2021-06-24] MEDS: diphenhydrAMINE HCl INJ 50 MG/ML VIAL 25 MG IV PUSH (20:47)
--- NOTE | 2021-06-24 22:15 | PC.NURSE ---
patient rounding completed. Patient sleeping comfortably in bed, with no signs of pain or discomfort.
[2021-06-25] VITALS: BP 111/87; PULSE 110; PULSE 99; RESP 18; TEMP 36.7; O2SAT 99
[2021-06-25] MEDS: METOCLOPRAMIDE HCL INJ 10 MG/2 ML VIAL IV PUSH ×2 (00:27→05:17)
[2021-06-25] MEDS: HYDROmorphone HCL INJ (*CRX) 2 MG/ML VIAL 0.5 MG IV PUSH ×2 (00:27→05:16)
[2021-06-25 04:00] VITALS: BP 120/91; PULSE 100; PULSE 115; RESP 18; TEMP 36.7; O2SAT 99
--- NOTE | 2021-06-25 04:25 | PC.NURSE ---
Patient rounding completed. Patient was sleeping comfortably in bed.
[2021-06-25 06:25] LABS: Hematocrit 22.7 % (40.0-54.0); Hemoglobin 7.4 g/dL (14.0-18.0); Immature Platelet Fraction Pct 3.6 % (1.0-7.0); Mean Corpuscular HGB Conc 32.6 g/dL (32.0-36.0); Mean Corpuscular Hemoglobin 34.4 pg (27.0-31.0); Mean Corpuscular Volume 105.6 fL (78.0-102.0); Mean Platelet Volume 9.6 fl (8.7-11.0); Platelet Count Result 73 K/mm3 (150-420); Red Blood Count 2.15 M/mm3 (4.70-6.10); Red Cell Distribution Width 22.2 % (11.6-14.4); White Blood Count 4.1 K/mm3 (4.8-10.8)
[2021-06-25 06:47] LABS: Alanine Aminotransferase 22 U/L (16-63); Albumin Level 2.1 g/dL (3.4-5.0); Alkaline Phosphatase 76 U/L (46-116); Anion Gap 1 mmol/L (8-16); Aspartate Amino Transferase 38 U/L (15-37); Bilirubin,Total 1.3 mg/dL (0.00-1.00); Blood Urea Nitrogen 7 mg/dL (7-18); Calcium 7.8 mg/dL (8.5-10.1); Carbon Dioxide 36 mmol/L (21-32); Chloride 100 mmol/L (98-108); Estimated CRCL calculation 138 ml/min; Estimated Glomerular Filt Rate > 60; Glucose 81 mg/dL (70-99); Lipase 309 U/L (73-393); Magnesium 1.4 mg/dL (1.8-2.4); Osmolality Calculated 281 mOsm/kg (285-295); Sodium 137 mmol/L (136-145); Total Protein 5.7 g/dL (6.4-8.2)
[2021-06-25 07:20] VITALS: BP 121/93; PULSE 122; RESP 18; TEMP 36.8; O2SAT 97
--- NOTE | 2021-06-25 07:39 | P.DS_ITS ---
DS: Admitting Diagnosis Admitting Diagnosis Pancreatitis DS: Discharge Diagnosis Discharge Diagnosis (1) Acute pancreatitis: Qualifiers: Acute pancreatitis complication: unspecified Pancreatitis type: alcohol induced Qualified Code(s): K85.20 - Alcohol induced acute pancreatitis without necrosis or infection Code(s): K85.90 - Acute pancreatitis without necrosis or infection, unspecified Status: Acute Assessment and Plan: * CT indicates pancreatitis * Continue pain control * Lipase 3643>-->1500>936>309 * Patient advance to regular diet tolerating * According to family member patient has a history of alcohol use * Patient was discharged with Reglan Zofran and pain medication (2) HTN (hypertension): Code(s): I10 - Essential (primary) hypertension Status: Acute Assessment and Plan: * Blood pressure stable * Continue home medication (3) Hypokalemia: Code(s): E87.6 - Hypokalemia Status: Acute Assessment and Plan: * Potassium 2.6>3.0>3.7>3.0 * potassium 40 mEq x2 * Repeat potassium before discharge * Will discharge home with 40 mEq of potassium x2 weeks and then repeat lab work results going to primary care physician (4) Elevated WBCs: Code(s): D72.829 - Elevated white blood cell count, unspecified Status: Acute Assessment and Plan: * Resolved * WBC 16.7>8.7>5.5 * Possibly secondary to infection versus pancreatitis * CMP in a.m. * Continue Rocephin and azithromycin * Blood culture preliminary no growth (5) Elevated d-dimer: Code(s): R79.89 - Other specified abnormal findings of blood chemistry Status: Acute Assessment and Plan: * D-dimer 1.07 * CTA does not indicate PE * Patient has a history of PE * IVC filter in place (6) Elevated lactic acid level: Code(s): R79.89 - Other specified abnormal findings of blood chemistry Status: Acute Assessment and Plan: * Resolved * Lactic acid3.3>1.7>0.7 * Possibly secondary to infection * Will continue IV fluids (7) Elevated AST (SGOT): Code(s): R74.01 - Elevation of levels of liver transaminase levels Status: Acute Assessment and Plan: * Resolved * AST 104>56 within normal limits> * Possibly secondary to dehydration versus pancreatitis * We will closely monitor liver function test * According to family member patient has a history of alcohol use (8) Elevated brain natriuretic peptide (BNP) level: Code(s): R79.89 - Other specified abnormal findings of blood chemistry Status: Acute Assessment and Plan: * Elevated BNP 2763 * Chest x-ray does not indicate pulmonary embolism * We will closely monitor I's and O's (9) Thrombosis: Code(s): I82.90 - Acute embolism and thrombosis of unspecified vein Status: Acute Assessment and Plan: * 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 * Blood cultures pending * Continue Rocephin and azithromycin for possible infection * If hardware is loose patient will need to follow-up with orthopedic surgeon (11) Anxiety and depression:
--- NOTE | 2021-06-25 07:39 | PM.DS ---
DS: Admitting Diagnosis Admitting Diagnosis Pancreatitis DS: Discharge Diagnosis Discharge Diagnosis (1) Acute pancreatitis: Qualifiers: Acute pancreatitis complication: unspecified Pancreatitis type: alcohol induced Qualified Code(s): K85.20 - Alcohol induced acute pancreatitis without necrosis or infection Code(s): K85.90 - Acute pancreatitis without necrosis or infection, unspecified Status: Acute Assessment and Plan: CT indicates pancreatitis Continue pain control Lipase 3643>-->1500>936>309 Patient advance to regular diet tolerating According to family member patient has a history of alcohol use Patient was discharged with Reglan Zofran and pain medication (2) HTN (hypertension): Code(s): I10 - Essential (primary) hypertension Status: Acute Assessment and Plan: Blood pressure stable Continue home medication (3) Hypokalemia: Code(s): E87.6 - Hypokalemia Status: Acute Assessment and Plan: Potassium 2.6>3.0>3.7>3.0 potassium 40 mEq x2 Repeat potassium before discharge Will discharge home with 40 mEq of potassium x2 weeks and then repeat lab work results going to primary care physician (4) Elevated WBCs: Code(s): D72.829 - Elevated white blood cell count, unspecified Status: Acute Assessment and Plan: Resolved WBC 16.7>8.7>5.5 Possibly secondary to infection versus pancreatitis CMP in a.m. Continue Rocephin and azithromycin Blood culture preliminary no growth (5) Elevated d-dimer: Code(s): R79.89 - Other specified abnormal findings of blood chemistry Status: Acute Assessment and Plan: D-dimer 1.07 CTA does not indicate PE Patient has a history of PE IVC filter in place (6) Elevated lactic acid level: Code(s): R79.89 - Other specified abnormal findings of blood chemistry Status: Acute Assessment and Plan: Resolved Lactic acid3.3>1.7>0.7 Possibly secondary to infection Will continue IV fluids (7) Elevated AST (SGOT): Code(s): R74.01 - Elevation of levels of liver transaminase levels Status: Acute Assessment and Plan: Resolved AST 104>56 within normal limits> Possibly secondary to dehydration versus pancreatitis We will closely monitor liver function test According to family member patient has a history of alcohol use (8) Elevated brain natriuretic peptide (BNP) level: Code(s): R79.89 - Other specified abnormal findings of blood chemistry Status: Acute Assessment and Plan: Elevated BNP 2763 Chest x-ray does not indicate pulmonary embolism We will closely monitor I's and O's (9) Thrombosis: Code(s): I82.90 - Acute embolism and thrombosis of unspecified vein Status: Acute Assessment and Plan: 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 Blood cultures pending Continue Rocephin and azithromycin for possible infection If hardware is loose patient will need to follow-up with orthopedic surgeon (11) Anxiety and depression: Code(s): F41.9 - Anxiety disorder, unspecified; F32.9 - Major depressive disorder, single episode, unspecified Status: Acute Assessment and Plan: Started Ativan (12) Nausea & vomiting: Code(s): R11.2 - Nausea with vomiting, unspecified Status: Acute Assessment and Plan: Chronic,improved Possibly worsening due to pancreatitis Started Zofran and Reglan Patient will discharge home with Zofran and Reglan (13) Elec
[2021-06-25] MEDS: MAGNESIUM SULF 2 GM/WATER 50ML 2 GM/50 ML BAG IVPB (07:44)
[2021-06-25 08:00] VITALS: PULSE 122
[2021-06-25] MEDS: POTASSIUM CHLORIDE 20 MEQ TABLET 40 MEQ PO (08:47)
[2021-06-25] MEDS: KCL 20 MEQ/SW 100 ML 100 ML 50 MEQ IVPB ×2 (08:47→10:48)
[2021-06-25] MEDS: PANTOPRAZOLE SODIUM IV 40 MG VIAL IV PUSH (08:47)
[2021-06-25] MEDS: guaiFENesin 12 HR 600 MG TABCR PO (08:48)
[2021-06-25] MEDS: HYDROcodone/acetaminophen (*CRX) 5-325 MG TABLET 1 TAB PO ×2 (08:52→13:52)
[2021-06-25 12:00] VITALS: PULSE 115
[2021-06-25 14:35] LABS: Alanine Aminotransferase 21 U/L (16-63); Alkaline Phosphatase 79 U/L (46-116); Anion Gap 1 mmol/L (8-16); Aspartate Amino Transferase 40 U/L (15-37); Bilirubin,Total 1.1 mg/dL (0.00-1.00); Blood Urea Nitrogen 8 mg/dL (7-18); Calcium 7.8 mg/dL (8.5-10.1); Carbon Dioxide 34 mmol/L (21-32); Chloride 99 mmol/L (98-108); Estimated CRCL calculation 118 ml/min; Estimated Glomerular Filt Rate > 60; Glucose 104 mg/dL (70-99); Osmolality Calculated 276 mOsm/kg (285-295); Sodium 134 mmol/L (136-145); Total Protein 5.6 g/dL (6.4-8.2)
--- NOTE | 2021-06-25 14:45 | PC.NURSE ---
Patient discharging home. Port site to right chest discontinued. Dressing applied to site. All belongings gathered together and sent home with patient. All discharge instructions and education reviewed with patient, patient states understanding. Patient taken down to front door via wheelchair, left via private vehicle with mother. Patient denies any questions at discharge.
[2021-06-28 10:36] LABS: Haptoglobin 77 mg/dL (43-212); Transferrin 99 mg/dL (188-341)
[2021-06-29 16:22] LABS: Soluble Transferrin Receptor 0.92 mg/L (0.76-1.76)
== END 2021-06-25 14:45 | disposition home or self-care (01) | DRG 282 ==
LOC: CHSED 13:11 → CHS2ND 13:28
PROVIDERS: Nurse Practitioner; Admitting Provider Emergency Medicine; Emergency Provider Emergency Medicine; PCP Family Medicine; Visit Provider Emergency Medicine
DX: K85.90 Acute pancreatitis without necrosis or infection, unspecified; C62.90 Malignant neoplasm of unspecified testis, unspecified whether descended or undescended; C79.9 Secondary malignant neoplasm of unspecified site; I10 Essential (primary) hypertension; I27.82 Chronic pulmonary embolism; E87.6 Hypokalemia; E87.8 Other disorders of electrolyte and fluid balance, not elsewhere classified; R00.0 Tachycardia, unspecified; R79.89 Other specified abnormal findings of blood chemistry; R74.01 Elevation of levels of liver transaminase levels; F32.9 Major depressive disorder, single episode, unspecified; F41.9 Anxiety disorder, unspecified
CPT/HCPCS: 36415; 71045; 71275; 80053; 80307; 82247; 82248; 82728; 83010; 83540; 83550; 83605; 83615; 83690; 83735; 83880; 84132; 84153; 84238; 84443; 84466; 84484; 85014; 85018; 85025; 85027; 85055; 85060; 85380; 85652; 86880; 87040; 87426; 93005; 96361; 96365; 96367; 96372; 96375; 99285; A9270; C9113; C9803; J0456; J0696; J1170; J1200; J1650; J2405; J2550; J2765; J3475; J3480; J7030; Q9967; U0003; U0005

== ENCOUNTER 2022-01-27 13:09 | Observation (INO) | payer MEDICARE, MEDICAID, SELFPAY ==
[2022-01-27] VITALS (18 sets, daily range): BP systolic 111–147; BP diastolic 80–106; PULSE 90–147; RESP 16–24; TEMP 36.3–37.1; O2SAT 93–100
--- NOTE | ~2022-01-27 | CT_ITS ---
EXAMINATION: CT brain wo con DATE: 01/27/2022 14:22 INDICATION: Altered mental state, confusion, tremors. History of metastatic testicular cancer. TECHNIQUE: Computed tomography (CT) of the head was performed without intravenous contrast. The mA wa s adjusted according to patient size. Iterative reconstruction technique was employed. Exam dose: 60 5.33 mGy-cm total exam DLP. COMPARISON: 06/11/2017 CT head FINDINGS: There is greater than expected cerebral and cerebellar volume loss for age as on 06/11/2017. No intracranial mass lesion or hemorrhage or cerebrovascular accident is detected. No midline shift o r mass effect effect. No subdural or epidural hematoma is detected. The included mastoid air cells and paranasal sinuses are normally developed and aerated. No fracture or bone destruction of the cranial vault. IMPRESSION: Cardiomegaly expected cerebral and cerebellar not significantly changed since 06/11/2017 No acute intracranial finding Reviewed, dictated and finalized at [facility]. Reviewed, dictated and finalized at [facility]. IMPRESSION: Cardiomegaly expected cerebral and cerebellar not significantly ch anged since 06/11/2017 No acute intracranial finding
--- NOTE | 2022-01-27 13:33 | ED.PSYCH ---
HPI - Psych General Chief Complaint: Psychiatric Symptoms Stated Complaint: Ambulance Time Seen by Provider: 01/27/22 13:33 Source: patient History of Present Illness HPI Narrative: 41-year-old male with a history of alcoholism,hypertension, metastatic testicular cancer status post multiple spine surgeries, status post chemo / RT, pancreatitis, pulmonary embolism status post IVC filter was brought in by EMS for -- patient was waving his fully loaded gun outside his house for which PD was called by his neighbor. -- Patient stated that someone was trying to steal his truck. -- Patient stated that there were 2 woman looking for a cat in front of his house. -- patient stated that his mother and his stepfather was in his house 5 minutes prior to him getting out of the house and waiving his gun. -- When the police inspected his house they noted multiple cons some of which we loaded and he had more than 2000 rounds of ammunition. He denied suicidal or homicidal ideation. He denied any visual or auditory hallucinations. The patient admitted to smoking marijuana but denied having taken any other illicit drugs or alcohol. According to his mother, who was contacted by the Police, the patient is a heavy drinker Onset (ago): unknown History of same: No ( the patient has had prior episodes of such behavior) Context: recent alcohol abuse and recent drug abuse Associated symptoms: nausea Treatments prior to arrival: none Related Data Home Medications Medication Instructions Recorded Confirmed ondansetron HCl [Zofran] 4 mg PO Q8H PRN 06/22/21 01/27/22 sertraline 50 mg PO DAILY 06/22/21 01/27/22 Allergies Allergy/AdvReac Type Severity Reaction Status Date / Time nut - unspecified Allergy Anaphylaxis Verified 01/27/22 13:28 Penicillins Allergy Unknown Verified 01/27/22 13:28 Review of Systems Review of Systems: All systems reviewed & are unremarkable except as noted in HPI and below Constitutional: Constitutional: Reports as per HPI and Reports no additional constitutional complaints Eyes: Eyes: Reports as per HPI and Reports no additional eye complaints ENT: Reports system reviewed and no additional complaints, except as documented and Reports as per HPI Cardiovascular: Cardiovascular: Reports as per HPI and Reports no additional cardiovascular complaints Respiratory: Respiratory: Reports as per HPI and Reports no additional respiratory complaints Gastrointestinal: Gastrointestinal: Reports as per HPI, Reports no additional gastrointestinal complaints and Reports nausea Genitourinary: Genitourinary: Reports no additional male genitourinary complaints Musculoskeletal: Musculoskeletal: Reports no additional musculoskeletal complaints Integumentary/Breasts: Comments: extensive healed scars. Has erythematous papular lesions on his forehead. Neurologic: Reports system reviewed and no additional complaints, except as documented Psychiatric: Psychiatric: Reports no additional psychiatric complaints and Reports as per HPI Endocrine: Endocrine: Reports no additional endocrine complaints and Reports as per HPI Hematologic/Lymphatic: Hematologic/Lymphatic: Reports no additional hematologic/lymphatic complaints and Reports as per HPI Allergic/Immunologic: Allergic/Immunologic: Reports no additional allergic/immunologic complaints and Reports as per HPI PMFSH Past Medical History Medical History Anxiety Depression HTN (hypertension) Lipoma Presence of IVC filter Pulmonary embolism Testicular cancer Surgical History Surgical History Back pain with history of spinal surgery Family History Family History Other Diabetes mellitus Hypertension Social History Social History Smoking status: Never
--- NOTE | 2022-01-27 13:44 | ECG_ITS ---
Measurements Intervals [place] Rate: 108 P: 43 IL: 153 QRS: 89 QRSD: 88 T: 42 QT: 262 QTc: 352 Interpretive Statements SINUS TACHYCARDIA NONSPECIFIC T-WAVE ABNORMALITY INFERIOR LEADS BASELINE ARTIFACT ABNORMAL ECG COMPARED TO ECG 06/22/2021 11:09:34 PVCS NO LONGER APPRECIATED Electronically Signed On 01-27-2022 17:01:45 CDT by Inderjit Kim M.D.
--- NOTE | 2022-01-27 14:00 | PC.NURSE ---
[place] PD arrived to ER. Officer states that they were called by pt's neighbor because pt was outside with his rifle yelling call 911! . Neighbor denied seeing anyone else outside with pt at that time and told officer that they had not seen anyone else all day. Officer states that the rifle pt had was loaded. Officer states that the truck pt claimed was broken into was covered in dust and looked like it had not been moved in years. Officer states that it was impossible to get into the truck from the passenger's side, and there were no footprints to indicate anyone had been on the chair car driver's side. Officer states that when they went into pt's house they found several guns, some of which were loaded, all laid out on a bed. Officer states that pt claimed he was going to sell the guns. Officer states that after searching the house they found over 2000 rounds of ammo and another pistol hidden in a drawer that pt had not told them about. Officer states that he called pt's mother, who said she had not been to pt's house in 2 days. She also said that the guns were not out when she was at the house last. Pt had also claimed that his stepfather had been at his house fixing a leak, but mother states that the stepfather had not been to see pt in two years.
[2022-01-27 14:04] LABS: Basophils Absolute Auto 0.01 K/mm3 (0.00-0.10); Basophils Percent Auto 0.1 % (0.0-1.0); Hematocrit 43.2 % (40.0-54.0); Hemoglobin 14.5 g/dL (14.0-18.0); Immature Granulocyte Absolute 0.04 K/mm3 (0.00-0.00); Immature Granulocyte Percent A 0.4 % (0.0-0.0); Immature Platelet Fraction Pct 2.7 % (1.0-7.0); Lymphocytes Absolute Auto 0.54 K/mm3 (1.10-4.50); Lymphocytes Percent Auto 5.6 % (18.0-42.0); Mean Corpuscular HGB Conc 33.6 g/dL (32.0-36.0); Mean Corpuscular Hemoglobin 31.5 pg (27.0-31.0); Mean Corpuscular Volume 93.9 fL (78.0-102.0); Mean Platelet Volume 9.9 fl (8.7-11.0); Monocytes Absolute Auto 0.44 K/mm3 (0.10-0.90); Monocytes Percent Auto 4.6 % (2.0-11.0); Neutrophils Absolute Auto 8.6 K/mm3 (1.7-7.2); Neutrophils Percent Auto 89.3 % (50.0-70.0); Platelet Count Result 131 K/mm3 (150-420); Red Cell Distribution Width 14.3 % (11.6-14.4); White Blood Count 9.6 K/mm3 (4.8-10.8)
--- NOTE | 2022-01-27 14:10 | PC.NURSE ---
Pt given sandwich, chips, and soda. Pt aware of UA order and has a urinal at bedside. Pt will notify staff when he has a sample available.
[2022-01-27 14:25] LABS: Alanine Aminotransferase 18 U/L (16-63); Albumin Level 3.7 g/dL (3.4-5.0); Alkaline Phosphatase 127 U/L (46-116); Anion Gap 7 mmol/L (8-16); Aspartate Amino Transferase 35 U/L (15-37); Bilirubin,Total 2.3 mg/dL (0.00-1.00); Blood Urea Nitrogen 31 mg/dL (7-18); Calcium 9.5 mg/dL (8.5-10.1); Carbon Dioxide 38 mmol/L (21-32); Chloride 84 mmol/L (98-108); Estimated CRCL calculation 51 ml/min; Estimated Glomerular Filt Rate 45; Glucose 99 mg/dL (70-99); Osmolality Calculated 274 mOsm/kg (285-295); Potassium 3.1 mmol/L (3.5-5.1); Sodium 129 mmol/L (136-145); Thyroid Stimulating Hormone 2.89 uIU/mL (0.36-3.74); Total Protein 9.3 g/dL (6.4-8.2)
[2022-01-27 14:27] LABS: Salicylate < 0.2 mg/dL (2.8-20.0)
[2022-01-27 14:28] LABS: Acetaminophen < 2 ug/mL (10-30); Ethanol < 3 mg/dL (0-6)
[2022-01-27 14:53] LABS: Add Urine Microscopic? YES; Appearance Urine Clear (Clear); Bilirubin Urine 2+ (Negative); Blood Urine 3+ (Negative); Color Urine Dark Yellow (Yellow); Glucose Urine UA Negative (Negative); Ketones Urine Trace (Negative); Leukocyte Esterase Ur Negative LEU/UL (Negative); Nitrate Urine Negative (Negative); Protein Urine 1+ (Negative); Urobilinogen Urine 0.2 mg/dL (0.2-1.0); pH Urine 5.5 (5.0-8.0)
[2022-01-27 15:01] LABS: Amphetamine Screen Urine Negative (Negative); Barbiturate Screen Urine Negative (Negative); Benzodiazepines Screen Urine Negative (Negative); Cannabinoid Screen Urine Positive (Negative); Cocaine Screen Urine Negative (Negative); Methadone Screen Urine Negative (Negative); Opiate Screen Urine Negative (Negative)
[2022-01-27 15:05] LABS: Bacteria Urine 2+ /hpf; Mucus Urine Few /lpf; Squamous Epithelial Cell Urine Rare /hpf (Few); WBC Urine None seen /hpf (0-3)
[2022-01-27] MEDS: SPIRONOLACTONE 25 MG TABLET PO ×2 (15:18→23:53)
[2022-01-27] MEDS: POTASSIUM CHLORIDE 20 MEQ TABLET 40 MEQ PO ×2 (15:18→23:53)
[2022-01-27] MEDS: SODIUM CHLORIDE 0.9% IV 1,000 ML 500 ML IV CONT (15:19)
--- NOTE | 2022-01-27 15:24 | PC.NURSE ---
Pt medicated per ERP order. Pt updated that labs will be rechecked after IVF is infused to determine if pt can be medically cleared for his psych consult. Pt remains calm and cooperative at this time.
[2022-01-27 16:04] LABS: SARS-CoV-2 RNA PCR Negative (Negative)
[2022-01-27 16:37] LABS: Anion Gap 4 mmol/L (8-16); Blood Urea Nitrogen 32 mg/dL (7-18); Calcium 8.4 mg/dL (8.5-10.1); Carbon Dioxide 38 mmol/L (21-32); Chloride 87 mmol/L (98-108); Estimated CRCL calculation 51 ml/min; Estimated Glomerular Filt Rate 45; Glucose 150 mg/dL (70-99); Osmolality Calculated 277 mOsm/kg (285-295); Potassium 2.9 mmol/L (3.5-5.1); Sodium 129 mmol/L (136-145)
--- NOTE | 2022-01-27 16:57 | PC.NURSE ---
Pt updated about lab results and need for further medication before pt is medically cleared for psych assessment. Pt remains calm and cooperative. Pt is talking about a song that keeps repeating on the radio . TV is on at this time, but is not on a channel that would be playing music. No radio in room.
[2022-01-27] MEDS: MAGNESIUM SULF 2 GM/WATER 50ML 2 GM/50 ML BAG IVPB (17:00)
[2022-01-27] MEDS: POTASSIUM BICARBONATE 25 MEQ TABEF 50 MEQ PO (17:29)
--- NOTE | 2022-01-27 18:17 | PC.NURSE ---
ER hold, report to [facility]
--- NOTE | 2022-01-27 18:30 | PC.NURSE ---
PATIENT ARRIVED TO ROOM 206 TRANSPORTED VIA W/C AND GROUP THERAPY COUNSELOR. PT ALERT AND ABLE TO AMBULATE TO BED WITHOUT DIFFICULTY. DOES HAVE CANE. NOTED TREMORS IN BOTH HANDS. PT STATES THAT HE WAS GLAD TO BE HERE AND AWAY FROM THE MUSIC THEY KEPT PLAYING THE SAME ONE OVER AND OVER AND OVER. ASKED PATIENT IF HE HEARD THE SONG NOW. PT DENIES. ASKED PATIENT IF HE WAS HAVING ANY PAIN, STATES HE HAS CHRONIC PAIN, FROM STAGE 4 TESTICULAR CANCER THAT SPREAD ALL OVER, AND REPORTS HISTORY OF PANCREATITIS AND HAS ISSUES FROM THAT. B/P ELEVATED 141/102. PT HAS HX OF ETOH, CONCERN FOR POSSIBLE DT'S, NOTIFIED CHARGE NURSE.
--- NOTE | 2022-01-27 18:40 | PC.NURSE ---
PT PROVIDED HAM SANDWICH, COTTAGE CHEESE, JELLO, AND A SODA. PT CALM AND COMPLIANT, WATCHING TV. MADE A PHONE CALL, UNKNOWN. TELEMETRY INITIATED.
[2022-01-27 19:14] LABS: Anion Gap 4 mmol/L (8-16); Blood Urea Nitrogen 31 mg/dL (7-18); Calcium 8.7 mg/dL (8.5-10.1); Carbon Dioxide 38 mmol/L (21-32); Chloride 87 mmol/L (98-108); Estimated CRCL calculation 56 ml/min; Estimated Glomerular Filt Rate 50; Glucose 86 mg/dL (70-99); Osmolality Calculated 273 mOsm/kg (285-295); Sodium 129 mmol/L (136-145)
[2022-01-27 19:15] LABS: Magnesium 2.1 mg/dL (1.8-2.4)
[2022-01-27] MEDS: KCL 20MEQ/0.9% SOD CHL 1,000 ML 100 ML IV CONT (19:47)
--- NOTE | 2022-01-27 20:00 | PC.NURSE ---
Patient resting in bed watching tv. Denies any pain/complaints/needs @ this time. Slight tremors noted. Patient appears anxious. No signs of hallucinations noted. Call light in reach.
--- NOTE | 2022-01-27 21:45 | PC.NURSE ---
[facility] counselor here talking with patient.
--- NOTE | 2022-01-27 22:17 | PC.NURSE ---
[facility] counselor still with patient.
--- NOTE | 2022-01-27 22:45 | PC.NURSE ---
[facility] counselor continues talking with patient.
--- NOTE | 2022-01-27 23:05 | PC.NURSE ---
Lab here, patient hallucinating stating people talking about how sick, states young man then said it was old man
--- NOTE | 2022-01-27 23:07 | PC.NURSE ---
Patient talking about man walking in [place] covered in blood dripping everywhere.
[2022-01-27 23:23] LABS: Anion Gap 5 mmol/L (8-16); Blood Urea Nitrogen 32 mg/dL (7-18); Calcium 8.3 mg/dL (8.5-10.1); Carbon Dioxide 36 mmol/L (21-32); Chloride 89 mmol/L (98-108); Estimated CRCL calculation 60 ml/min; Estimated Glomerular Filt Rate 56; Glucose 97 mg/dL (70-99); Osmolality Calculated 276 mOsm/kg (285-295); Potassium 2.8 mmol/L (3.5-5.1); Sodium 130 mmol/L (136-145)
--- NOTE | 2022-01-27 23:40 | PC.NURSE ---
Dr Lopez called with new orders received. [facility] counselor finished talking with patient and is asking Dr Lopez for involuntary psychiatric placement.
--- NOTE | 2022-01-28 00:01 | PC.NURSE ---
Patient given oral potassium and spironlactone; explained medication need, use and side effects. Given mynor crackers.
[2022-01-28 00:03] VITALS: BP 125/89; PULSE 106; RESP 20; TEMP 37.7; O2SAT 94
--- NOTE | 2022-01-28 00:08 | PC.NURSE ---
Telemetry: ST with rate: 104; no ectopy; TX: 0.20; QRS:0.08; QT:0.36
--- NOTE | 2022-01-28 00:27 | PC.NURSE ---
Dr Lopez called with new orders received.
[2022-01-28] MEDS: LORazepam INJ (*CRX) 2 MG/ML VIAL 1 MG IV PUSH (00:43)
--- NOTE | 2022-01-28 01:26 | PC.NURSE ---
Pt medically cleared per dr gray
--- NOTE | 2022-01-28 01:31 | PC.NURSE ---
Up with assist of two to void; continues to hallucinate, states Neha needs our help and is yelling. Asks about duty dog, rolling up tissues, sitting at side of bed and will not lie down, increasingly agitated. Mary engraver signature aware.
--- NOTE | 2022-01-28 01:35 | PC.NURSE ---
Spoke with Dr Lopez about patient's increased agitation and hallucinations. New order received for Haldol 5mg IM x1.
[2022-01-28] MEDS: HALOPERIDOL LACTATE 5 MG/ML VIAL IM (01:44)
--- NOTE | 2022-01-28 02:26 | PC.NURSE ---
[employer] [employer] called to speak with patient, call transferred to room, patient identified self to coordinator, then states he didn't want to talk to them. Patient put phone down and refused to pick phone up. Nurse picked up phone and spoke with Coordinator, Coordinator stated that patient refused to talk to them and then hung up. Patient was licking saniwipe, nurse removed wipe, patient laughing inappropriately and going through his personal belongings bag. When asked if he needed anything, patient did not answer and continued activity.Telemetry: SR/ST without ectopy with rate:98. IV to right forearm with 1000ml NS with 20meqKCL infusing at 100ml/hr per IV pump. No signs infection/infiltration. Skin pink, warm, dry with multiple scabbed sores over body.
--- NOTE | 2022-01-28 02:29 | PC.NURSE ---
Leslie from [facility] notified of patient refusing to speak to [employer] and updated on patient's most recent potassium level. Dr Lopez also updated on refusal to speak to Coordinator.
--- NOTE | 2022-01-28 02:45 | PC.NURSE ---
Leslie from [facility] called to report that [facility] called with refusal to take patient due to patient being medically unstable with low potassium level. Dr Lopez notified by Ramón Medrano RN from ER.
--- NOTE | 2022-01-28 04:00 | PC.NURSE ---
Sleeping, Skin pink, respirations easy/unlabored/spontaneous. Sporadic random limb twitching but not all at once, IV 1000ml NS with 20meq KCL infusing @100ml/hr per IV pump into Right forearm site without signs of infection/infiltration.Telemetry: SR with no ectopy and rate: 80. No distress noted.
--- NOTE | 2022-01-28 04:48 | PC.NURSE ---
Called Dr Lopez to ask if IV potassium is to continue when first bag is finished due to order being discontinues. New order received.
--- NOTE | 2022-01-28 05:06 | PC.NURSE ---
0400 Vital signs as patient is sleeping and in no distress.
--- NOTE | 2022-01-28 05:15 | PC.NURSE ---
Patient remains sleeping in no distress; Vital signs held as patient agitated and uncontrollable prior to Haldol IM. Mary scrap breaker aware. Will provide Vital Signs when awake.
[2022-01-28] MEDS: KCL 20MEQ/0.9% SOD CHL 1,000 ML 100 ML IV CONT ×2 (05:34→16:47)
--- NOTE | 2022-01-28 06:01 | PC.NURSE ---
Patient's chart faxed to Yvonne @ [facility] per request.
[2022-01-28 07:26] LABS: Anion Gap 3 mmol/L (8-16); Blood Urea Nitrogen 25 mg/dL (7-18); Calcium 8.2 mg/dL (8.5-10.1); Carbon Dioxide 36 mmol/L (21-32); Chloride 97 mmol/L (98-108); Estimated CRCL calculation 77 ml/min; Estimated Glomerular Filt Rate > 60; Glucose 88 mg/dL (70-99); Osmolality Calculated 285 mOsm/kg (285-295); Potassium 3.3 mmol/L (3.5-5.1); Sodium 136 mmol/L (136-145)
[2022-01-28 07:27] LABS: Magnesium 1.7 mg/dL (1.8-2.4)
[2022-01-28 08:00] VITALS: BP 110/80; PULSE 80; RESP 18; TEMP 36.1; O2SAT 96
[2022-01-28] MEDS: POTASSIUM CHLORIDE 20 MEQ TABLET 40 MEQ PO ×2 (08:40→16:47)
--- NOTE | 2022-01-28 09:15 | PC.NURSE ---
0845 breakfast served sitting on side of bed. alert and orient. denies pain. claims he is hungry. has tremors of upper and lower extermities at times. uses urinal. sr to st on tele. rates 80-100's.
[2022-01-28] MEDS: NITROFURANTOIN MONOHYD MACROCR 100 MG CAP PO ×2 (09:51→20:16)
[2022-01-28] MEDS: levoFLOXacin 500 MG/D5W 100 ML 500 MG/100 ML BAG 100 MG IVPB (09:52)
--- NOTE | 2022-01-28 09:58 | PC.NURSE ---
1000 cont to sleep. arrouses eaily and drifts back off. ivf cont. ivabt running. takes oral. sr on tele with rates of 80's christine smith
--- NOTE | 2022-01-28 11:23 | PM.EVENT ---
Event Note Event Note Event Note: Called [facility] prior to admitting to see what was needed for patient to be admitted to behavioral health spoke with Lizz who informed me that they want the uti treated and the potassium to be wnl limits
--- NOTE | 2022-01-28 11:43 | ADMGEN ---
1040 This patient, Dwayne Lane, has status change from er hold to obs and remains on 2nd Floor Room 206-1. Dx uti and hypokalemia. Patient/family oriented to hospital policies and general routines including ID bracelet, bed and alarms, visiting hours, pain management, procedures, bathroom and other care routines, personal items, smoking policy, room service/diet, and visiting hours. Information on how to activate the Rapid Response Team has been discussed. Patient/Family are encouraged to report perceived risks to care and to ask questions if they do not understand what they are told or what they should do.
[2022-01-28 12:00] VITALS: BMI 22.1
[2022-01-28 12:15] VITALS: BP 138/88; PULSE 100; RESP 18; TEMP 36.6; O2SAT 100
[2022-01-28 14:00] VITALS: BP 120/84; PULSE 100; RESP 18; TEMP 36.8; O2SAT 98
[2022-01-28 15:30] VITALS: BP 119/89; PULSE 78; RESP 18; TEMP 36.4; O2SAT 97
[2022-01-29] VITALS: BP 124/94; PULSE 74; RESP 14; TEMP 36.4; O2SAT 98
[2022-01-29] MEDS: LORazepam INJ (*CRX) 2 MG/ML VIAL 1 MG IV PUSH (00:03)
[2022-01-29] MEDS: KCL 20MEQ/0.9% SOD CHL 1,000 ML 100 ML IV CONT (02:41)
[2022-01-29 05:59] LABS: Hematocrit 33.7 % (40.0-54.0); Hemoglobin 10.5 g/dL (14.0-18.0); Immature Platelet Fraction Pct 1.8 % (1.0-7.0); Mean Corpuscular HGB Conc 31.2 g/dL (32.0-36.0); Mean Corpuscular Hemoglobin 31.4 pg (27.0-31.0); Mean Corpuscular Volume 100.9 fL (78.0-102.0); Mean Platelet Volume 10.1 fl (8.7-11.0); Platelet Count Result 67 K/mm3 (150-420); Red Blood Count 3.34 M/mm3 (4.70-6.10); Red Cell Distribution Width 14.6 % (11.6-14.4); White Blood Count 2.4 K/mm3 (4.8-10.8)
[2022-01-29 06:09] LABS: Anion Gap 4 mmol/L (8-16); Blood Urea Nitrogen 16 mg/dL (7-18); Calcium 8.6 mg/dL (8.5-10.1); Carbon Dioxide 28 mmol/L (21-32); Chloride 105 mmol/L (98-108); Estimated CRCL calculation 95 ml/min; Estimated Glomerular Filt Rate > 60; Glucose 82 mg/dL (70-99); Osmolality Calculated 284 mOsm/kg (285-295); Potassium 4.4 mmol/L (3.5-5.1); Sodium 137 mmol/L (136-145)
[2022-01-29 07:54] VITALS: RESP 18; O2SAT 97
--- NOTE | 2022-01-29 08:08 | PC.NURSE ---
[facility]) and update given. he is pleasant and cooperative. urine is clear yellow and lab work results given. claim they will start the a new search for bed at this time and will get back with us. christine smith
[2022-01-29] MEDS: POTASSIUM CHLORIDE 20 MEQ TABLET 40 MEQ PO ×2 (08:18→16:48)
[2022-01-29 08:19] VITALS: BP 140/100; PULSE 85; RESP 18; TEMP 36.2; O2SAT 100
--- NOTE | 2022-01-29 08:25 | PC.NURSE ---
Pt sitting bedside to eat breakfast this AM, Noted IV site out of Rt FA and lying in bed c pt. Gown wet from fluids infusing into sheets. Pt reports rolling around this AM and site must have come out. IV fluids put on hold at this time until INSTRUMENT REPAIRER arrives, Noted K+ level now 4.4. Pt is alert, cooperative and answers all questions appropriately. New gown provided and bed changed c new linen. Pt voices no c/o at this time.
--- NOTE | 2022-01-29 08:32 | PC.NURSE ---
again talked with vero blanco and labs and requested paperwork being faxed to [facility]. christine smith
[2022-01-29] MEDS: PANTOPRAZOLE SOD SESQUIHYDRATE 20 MG TAB PO (08:48)
[2022-01-29] MEDS: NITROFURANTOIN MONOHYD MACROCR 100 MG CAP PO ×2 (08:48→20:42)
[2022-01-29] MEDS: cloNIDine HCL 0.1 MG TABLET PO (09:14)
--- NOTE | 2022-01-29 09:29 | PC.NURSE ---
Pt ambulated to BR per self, had BM, back to bed s assist and awaiting info for transfer to psychiatric facility or re-eval from [facility].
--- NOTE | 2022-01-29 09:48 | PC.NURSE ---
Pt finished talking TO [employer] DEVELOPERAlicja. POC discussed c pt to go to a psychatric facility for help and evaluation voluntarily. Call will be made to [facility] counselor on update of info. Pt in bed, tearful at this time but cooperative c care and willing to go for help voluntarily. Pt in close observation of nurse station.
[2022-01-29] MEDS: cefTRIAXone 1 GM VIAL IM (10:09)
[2022-01-29] MEDS: LIDOCAINE HCL 1% LOCAL INJ 20 ML VIAL (10:12)
--- NOTE | 2022-01-29 10:12 | PC.NURSE ---
DEEPA Helm in speaking c pt. and voluntary paperwork signed by pt for transfer to psychiatric hospital.
[2022-01-29 11:44] LABS: Hematocrit 33.2 % (40.0-54.0); Hemoglobin 10.4 g/dL (14.0-18.0); Immature Platelet Fraction Pct 2.3 % (1.0-7.0); Mean Corpuscular HGB Conc 31.3 g/dL (32.0-36.0); Mean Corpuscular Hemoglobin 31.6 pg (27.0-31.0); Mean Corpuscular Volume 100.9 fL (78.0-102.0); Mean Platelet Volume 9.7 fl (8.7-11.0); Platelet Count Result 84 K/mm3 (150-420); Red Blood Count 3.29 M/mm3 (4.70-6.10); Red Cell Distribution Width 14.5 % (11.6-14.4); White Blood Count 4.3 K/mm3 (4.8-10.8)
--- NOTE | 2022-01-29 12:11 | PM.IMHP ---
H&P: HPI History of Present Illness Date/Time: 01/29/22 12:11 This is a 41-year-old male that presents to the emergency room was brought in by the police with some psychosis and hallucinations. According to notes patient had some gone and was seeing things. Patient has a past medical history of prostate cancer that had metastasized he was treated with chemoradiation. Patient is a alcoholic and drinks every day, he has hypertension on arrival he was very lethargic unable to answer any of my questions would open his eyes and mumble was not a very good historian tremors noted initial potassium was 2.8 replenished IV currently 3.3, sodium initially 125 currently 136, BUN was 32 currently 25, creatinine 1.42 currently 1.10, WBCs 2.4, hemoglobin 10.5. We will continue to monitor patient and start on some blood pressure medication when he is more arousable Spoke with Jill from [facility] we will attempt to transfer when patient is medically cleared Chief Complaint: Psychosis, hallucination, Hypokalemia, hyponatremia Review of Systems Review of Systems: Lethargic, psychosis All systems reviewed & are unremarkable except as noted in HPI and below PMFSH Past Medical History Medical History Anxiety Depression HTN (hypertension) Lipoma Presence of IVC filter Pulmonary embolism Testicular cancer Surgical History Surgical History Back pain with history of spinal surgery Family History Family History Other Diabetes mellitus Hypertension Social History Social History Smoking status: Never smoker Alcohol intake: current Drinks per week: 4 Substance use: current Substance use type: marijuana Gender identity (if verbalized by the patient): Male Spiritual care concerns: No Comments At time as signature, I have reviewed and agree with nursing past medical, social, surgical and family history. Please see nursing chart for further information. There is no relevant family history pertinent to the presenting complaint. Meds Home Medications and Allergies Home Medications Medication Instructions Recorded Confirmed Type ondansetron HCl [Zofran] 4 mg PO Q8H PRN 08/25/21 04/01/22 History sertraline 50 mg PO DAILY 06/22/21 01/27/22 History Allergies Allergy/AdvReac Type Severity Reaction Status Date / Time nut - unspecified Allergy Anaphylaxis Verified 01/27/22 13:28 Penicillins Allergy Unknown Verified 01/27/22 13:28 Vital Signs Vital Signs - 24 hr 01/28/22 12:15 01/28/22 14:00 01/28/22 15:30 Temperature 97.9 F 98.3 F 97.5 F L Pulse Rate 100 100 78 Respiratory Rate 18 18 18 Blood Pressure 138/88 120/84 119/89 Pulse Oximetry 100 98 97 01/29/22 00:00 01/29/22 07:54 01/29/22 08:19 Temperature 97.6 F 97.2 F L Pulse Rate 74 85 Respiratory Rate 14 18 18 Blood Pressure 124/94 H 140/100 H Pulse Oximetry 98 97 100 Exam Narrative: GENERAL:Well-appearing, well-nourished, and in no acute distress. HEAD:Normocephalic, atraumatic. EYES: PERRLA and EOMI. ENT: Nares clear, no rhinorrhea or epistaxis. Mucous membranes moist. NECK: Supple. CHEST: Clear to auscultation. No respiratory distress. HEART: Regular rate and rhythm. decreased peripheral pulses. ABDOMEN: Soft, nontender, nondistended, normal active bowel sounds. EXTREMITIES: Normal range of motion. 1+ edema. SKIN: Warm, dry, no rash. multiple abrasion and sores on skin NEURO: No focal deficits. Alert and oriented x2-3 at times H&P: Results Labs Labs: Short CBC 01/29/22 01/29/22 Range/Units 05:48 11:39 WBC 2.4 L 4.3 L (4.8-10.8) K/mm3 Hgb 10.5 L 10.4 L (14.0-18.0) g/dL Hct 33.7 L 33.2 L (40.0-54.0) % Plt Count 67 L 84 L (150-420) K/mm3 [facility] 01/29/22 05:48 Sodium 137
[2022-01-29 15:46] VITALS: BP 144/100; PULSE 85; RESP 16; TEMP 36.6; O2SAT 100
--- NOTE | 2022-01-29 16:08 | PC.NURSE ---
[facility] [place], operated [facility] calls back and claims he still is not stable enough for them to accept. patient rests quietly in bed.
--- NOTE | 2022-01-29 16:32 | PC.NURSE ---
pt washed self with wipes and used shower cap, changed into pants brought in by mother
[2022-01-29] MEDS: amLODIPine BESYLATE 5 MG TABLET 10 MG PO (17:16)
--- NOTE | 2022-01-29 17:30 | P.PNCROSS_ITS ---
Event Note Event Note Event Note: [facility] has refused to accept the patient due to his hgb and wbc and they feel something is going on with him that he is to unstable for them medically. I informed Jill from [facility] who said if no one will accept today they will come and reevaluate tomorrow patient has signed voluntary admission.
[2022-01-29] MEDS: traZODone HCL 50 MG TABLET PO (20:42)
[2022-01-30] VITALS: BP 134/100; PULSE 84; RESP 20; TEMP 36.8; O2SAT 99
[2022-01-30 04:56] LABS: Hemoglobin 12.4 g/dL (14.0-18.0); Immature Platelet Fraction Pct 2.5 % (1.0-7.0); Mean Corpuscular HGB Conc 31.8 g/dL (32.0-36.0); Mean Corpuscular Volume 100.8 fL (78.0-102.0); Mean Platelet Volume 10.4 fl (8.7-11.0); Platelet Count Result 103 K/mm3 (150-420); Red Blood Count 3.87 M/mm3 (4.70-6.10); Red Cell Distribution Width 14.5 % (11.6-14.4)
[2022-01-30 07:33] VITALS: BP 153/105; PULSE 99; RESP 18; TEMP 36.6; O2SAT 95
--- NOTE | 2022-01-30 07:40 | WPDPN ---
Progress Note: A&P Assessment and Plan (1) Electrolyte imbalance: Code(s): E87.8 - Other disorders of electrolyte and fluid balance, not elsewhere classified Status: Acute Assessment and Plan: Hypokalemia 2.2...3.0...3.3...4.4 replenished with IV and oral potassium (2) Anemia: Code(s): D64.9 - Anemia, unspecified Status: Acute Assessment and Plan: Monitor lab work and HH IF HH goes below 7 transfuse (3) Electrolyte imbalance: Code(s): E87.8 - Other disorders of electrolyte and fluid balance, not elsewhere classified Status: Acute Assessment and Plan: monitor labs and replenish as needed (4) Anxiety and depression: Code(s): F41.9 - Anxiety disorder, unspecified; F32.9 - Major depressive disorder, single episode, unspecified Status: Acute Assessment and Plan: Ativan Oral medication Transfer to [facility] when medically clear Pt is medically clear for transfer (5) Psychosis: Qualifiers: Psychosis type: delusional disorder Qualified Code(s): F22 - Delusional disorders Code(s): F29 - Unspecified psychosis not due to a substance or known physiological condition Status: Acute Assessment and Plan: Resolved Pt. Alert and orientated Pt mental compacity has improved (6) Alcoholism: Code(s): F10.20 - Alcohol dependence, uncomplicated Status: Acute Assessment and Plan: Monitor for detox or for Clondine Librium if indicated initiate CIWA if indicated Ativan (7) Hypokalemia: Code(s): E87.6 - Hypokalemia Status: Acute Assessment and Plan: IV potassium Oral potassium 2.2..3.3...3.3...4.4 resolved (8) HTN (hypertension): Qualifiers: Hypertension type: unspecified Qualified Code(s): I10 - Essential (primary) hypertension Code(s): I10 - Essential (primary) hypertension Status: Acute Assessment and Plan: Started on Lisinopril clonidine once monitor vitals will adject medication as indicated Subjective Date/time seen: 01/30/22 07:40 Patient is alert and orientated mental states is clear today and no agitation noted. Patient states he feels a lot better and he denies any hallucination . Patient drinks on a daily basis he has some tremor noted. Patient is medically stable for transfer to [facility] and or home. Spoke with Jill at [facility] and we will faxs labs to [facility] and they will come and reevaluate patient if they continue to decline patient . Exam Narrative: GENERAL:Well-appearing, well-nourished, and in no acute distress. HEAD:Normocephalic, atraumatic. EYES: PERRLA and EOMI. ENT: Nares clear, no rhinorrhea or epistaxis. Mucous membranes moist. NECK: Supple. CHEST: Clear to auscultation. No respiratory distress. HEART: Irregular rate and rhythm. Normal peripheral pulses. ABDOMEN: Soft, nontender, nondistended, normal active bowel sounds. EXTREMITIES: Normal range of motion. No edema. SKIN: Warm, dry, no rash. sores on bilateral arms and legs from scratching NEURO: No focal deficits. Alert and oriented x3. Objective Data Vital Signs Vital Signs: Vital Signs - 24 hr 01/29/22 07:54 01/29/22 08:19 01/29/22 15:46 Temperature 97.2 F L 97.9 F Pulse Rate 85 85 Respiratory Rate 18 18 16 Blood Pressure 140/100 H 144/100 H Pulse Oximetry 97 100 100 01/30/22 00:00 01/30/22 07:33 Temperature 98.3 F 97.8 F Pulse Rate 84 99 Respiratory Rate 20 18 Blood Pressure 134/100 H 153/105 H Pulse Oximetry 99 95 Intake/Output Intake/Output: Intake & Output 01/27/22 01/28/22 01/29/22 01/30/22 23:59 23:59 23:59 23:59 Intake Total 1000 4270 2510 2800 Output Total 2700 1925 3200 Balance 1000 1570 585 -400 Meds/Results Medications: Active Medications Generic Name Dose Route Start Last Admin Trade Name Freq PRN Reason Stop Dose Admin Potassium Chloride/Sodium Chloride 1,000
--- NOTE | 2022-01-30 07:50 | PC.NURSE ---
AM meds faxed to [facility] to evaluate after their am meeting today after 929
[2022-01-30] MEDS: POTASSIUM CHLORIDE 20 MEQ TABLET 40 MEQ PO ×2 (08:47→17:18)
[2022-01-30] MEDS: MAGNESIUM CHLORIDE 64 MG TABLET PO (08:47)
[2022-01-30] MEDS: lisinopriL 10 MG TABLET PO (08:47)
[2022-01-30] MEDS: PANTOPRAZOLE SOD SESQUIHYDRATE 20 MG TAB PO (08:48)
[2022-01-30] MEDS: NITROFURANTOIN MONOHYD MACROCR 100 MG CAP PO (08:48)
[2022-01-30] MEDS: cloNIDine HCL 0.1 MG TABLET PO (08:53)
[2022-01-30 12:33] LABS: Magnesium 1.8 mg/dL (1.8-2.4)
[2022-01-30 13:32] VITALS: BP 121/90; PULSE 96
--- NOTE | 2022-01-30 13:36 | PM.DS ---
DS: Admitting Diagnosis Discharge Date 01/30 Admitting Diagnosis Psychosis , Hypomagnesium, lethargic DS: Discharge Diagnosis Discharge Diagnosis (1) Psychosis: Qualifiers: Psychosis type: delusional disorder Qualified Code(s): F22 - Delusional disorders Code(s): F29 - Unspecified psychosis not due to a substance or known physiological condition Status: Acute Assessment and Plan: Resolving Lethargic arousable to my voice conversation does not always make sense Alert orientated no hallucination, parnoid action or agitation for the past 24 hours (2) Alcoholism: Code(s): F10.20 - Alcohol dependence, uncomplicated Status: Acute Assessment and Plan: Monitor for detox or for (3) Tachycardia: Code(s): R00.0 - Tachycardia, unspecified Status: Acute Assessment and Plan: stable heart rate is 96 (4) Anemia: Qualifiers: Anemia type: unspecified type Qualified Code(s): D64.9 - Anemia, unspecified Code(s): D64.9 - Anemia, unspecified Status: Acute Assessment and Plan: stable HGB12.4 (5) Electrolyte imbalance: Code(s): E87.8 - Other disorders of electrolyte and fluid balance, not elsewhere classified Status: Acute Assessment and Plan: Replenished (6) Anxiety and depression: Code(s): F41.9 - Anxiety disorder, unspecified; F32.9 - Major depressive disorder, single episode, unspecified Status: Acute Assessment and Plan: Ativan Oral medication Transfer to [facility] when medically clear unable to get facility to accepts. Patient is medically clear . Behavioral health intake Jill is ok with discharge home and outpatient appointment (7) Hypokalemia: Code(s): E87.6 - Hypokalemia Status: Acute Assessment and Plan: IV potassium Oral potassium 2.2..3.3...3.3..4.4 DS: Summary Hospital Course Reason for hospitalization: Psychosis, Hypomagnesium, Hypokalemia,Hypertension agitation Hospital Course: This is a 41-year-old male that was admitted for psychosis agitation with hypomagnesium, hypokalemia, and hypertension awaiting for behavioral health bed after he is medically cleared. Patient was given IV fluids as well as his magnesium was replaced, potassium, and was started on some blood pressure medication. Initially patient was given Ativan and Haldol and slept for the first 24 hours. Patient woke up he was not agitated did not hallucinate and seemed ready for discharge. At that time hospitalist with behavioral health declined as they did not feel like patient was medically stable. The concerns noted with patient's hemoglobin at 10.6 originally was 14 this was associated to dilutional patient's white blood count at the time was 2.4 currently white blood count 4.0 after review to his chart he has a chronic history of having a low white blood count. To patient another day patient hemoglobin is 12.4 no signs or symptoms of bleeding patient continues to prove more alert and oriented has some tremors noted as he drinks every day. I have been in discussion with local history been in contact with Jill patient is eating and drinking without any difficulties patient denies being harmful to herself or anybody else. Patient seems safe for home only concern is patient still believes that there are people in his home he remembers everything that happened with the police. Patient aware that all his guns please have any as asked when he can get them back I told him continue to discuss that with the police. From a medical standpoint patient is able to go home without any difficulty I have not observed in the last 24 to 48 hours any hallucinations paranoia or aggressive behaviors. Prior to discharge patient blood pressure was 121/90 he will go home on lisinopril. Discussed with Jill my concerns from behavioral health since we are unable to get him into any facilities she will call him
--- NOTE | 2022-01-30 17:45 | PC.NURSE ---
Patient being discharged home. Patient has no IV access. All belongings gathered together and sent home with patient. All discharge instructions and education reviewed with patient. Patient states understanding. Denies any questions at discharge. Patient accompanied to front door via wheelchair by this nurse. Patient left via private vehicle with his mother.
--- NOTE | 2022-01-31 11:07 | PC.NURSE ---
Unable to contact due to phone disconnected.
--- NOTE | 2022-02-03 19:27 | PC.NURSE ---
mag stopped 1800 on 01/27/2022
== END 2022-01-30 17:45 | disposition home or self-care (01) ==
LOC: CHSED 13:11 → CHS2ND 17:34
PROVIDERS: Nurse Practitioner Family; Admitting Provider Internal Medicine; Emergency Provider Internal Medicine Critical Care Medicine; PCP Family Medicine; Visit Provider Internal Medicine
DX: F22 Delusional disorders (principal); E87.8 Other disorders of electrolyte and fluid balance, not elsewhere classified; R00.0 Tachycardia, unspecified; D64.9 Anemia, unspecified; I10 Essential (primary) hypertension; C62.90 Malignant neoplasm of unspecified testis, unspecified whether descended or undescended; C79.9 Secondary malignant neoplasm of unspecified site; E87.6 Hypokalemia; F32.9 Major depressive disorder, single episode, unspecified; F10.20 Alcohol dependence, uncomplicated; F41.9 Anxiety disorder, unspecified; Z86.711 Personal history of pulmonary embolism; Z20.822 Contact with and (suspected) exposure to COVID-19
CPT/HCPCS: 36415; 70450; 80048; 80053; 80307; 81001; 83735; 84443; 85025; 85027; 85055; 93005; 96361; 96365; 96366; 96367; 96372; 96375; 99285; A9270; C9803; G0378; J0696; J1630; J1956; J2060; J3475; J3480; J7030; U0003; U0005

== ENCOUNTER 2024-05-28 07:04 | Outpatient (CLI) | payer MEDICARE, MEDICAID, SELFPAY ==
--- NOTE | ~2024-05-28 | CT_ITS ---
Clinical Indication: Testicular cancer CT Scan of the Chest, Abdomen, and Pelvis with Contrast: Technique: Contiguous sections were acquired throughout the chest, abdomen, and pelvis after intraven ous administration of 100 cc of Omnipaque 350. Dose reduction technique was used on this scan by bessie mckinneying automated exposure control and iterative reconstruction technique. The dose-length product (DL P) was 911.19 mGy-cm. COMPARISON: 06/22/2021 Findings: Scattered shotty and minimally prominent mediastinal lymph nodes are similar to prior exam.. The medi astinal vascular structures appear normal. There is no evidence of pleural or pericardial effusion. Stable scarring at the right lung apex. Several small irregular right upper lobe pulmonary nodule/den sities are unchanged. 2.2 cm spiculated nodular density in the right perihilar region with central ca lcification is stable from prior exam. There is chronic right basilar atelectasis, unchanged. No susp icious pulmonary nodule identified. The liver, spleen, pancreas, adrenals and kidneys are within normal limits. Small calcified gallstone s are present. No evidence of aortic aneurysm. IVC filter present. No lymphadenopathy. No bowel obstruction or bowel wall thickening. There is no evidence to suggest acute appendicitis. Urinary bladder is unremarkable. No pelvic mass seen. No ascites. Chronic compression fracture of T8 is unchanged, with posterior thoracic fusion hardware extending from T6 through the L3 level. Possibl e underlying fracture of L2 vertebral body, also unchanged from prior exam. Prior T12 corpectomy with probable underlying severe compression fracture. Stable lucency about the transpedicular screws in t he thoracic spine. Impression: No evidence for active metastatic disease/malignancy. Chronic pulmonary findings, as above, compatible with treated disease and/or chronic postinflammatory change. Chronic postoperative changes in the thoracolumbar spine, an underlying fracture deformities. This co uld be related to prior osseous metastatic disease. Correlate with treatment history. Stable lucency about thoracic transpedicular screws, which could indicate chronic loosening. Cholelithiasis. Reviewed, dictated and finalized at location M. Impression: No evidence for active metastatic disease/malignancy. Chronic pulmonary findings, as above, compatible with treated disease and/or ch ronic postinflammatory change. Chronic postoperative changes in the thoracolumbar spine, an underlying fractur e deformities. This could be related to prior osseous metastatic disease. Corre late with treatment history. Stable lucency about thoracic transpedicular screw s, which could indicate chronic loosening. Cholelithiasis.
[2024-05-28 07:41] LABS: Estimated Glomerular Filt Rate > 60
== END 2024-05-28 07:05 | disposition home or self-care (01) ==
LOC: CHSIMG 07:07
PROVIDERS: PCP Family Medicine; Visit Provider Physician Assistant
DX: R91.8 Other nonspecific abnormal finding of lung field (principal); Z85.47 Personal history of malignant neoplasm of testis; Z98.890 Other specified postprocedural states; K80.20 Calculus of gallbladder without cholecystitis without obstruction
CPT/HCPCS: 71260; 74177; Q9967

== ENCOUNTER 2025-04-26 11:40 | Emergency (ER) | payer MEDICARE, MEDICAID, SELFPAY ==
[2025-04-26] VITALS (54 sets, daily range): BP systolic 83–140; BP diastolic 53–89; PULSE 70–126; RESP 14–34; TEMP 36.1–36.7; O2SAT 69–100
--- NOTE | ~2025-04-26 | XR_ITS ---
Portable chest x-ray Comparison: 06/22/2021 Clinical History: Shortness of breath Findings: Right-sided central Mediport is unchanged. Probable small right pleural effusion. Left danial g clear. Cardiomediastinal silhouette is stable. Stable extensive thoracolumbar spinal fixation hard gould. Impression: Small right pleural effusion. Other chronic findings, as above. Reviewed, dictated and finalized at location . Impression: Small right pleural effusion. Other chronic findings, as above.
--- NOTE | ~2025-04-26 | CT_ITS ---
Noncontrast CT scan of the thoracic spine CLINICAL HISTORY: Lesion mid back, history of metastatic cancer TECHNIQUE: Axial noncontrast imaging of the thoracic spine was performed. Sagittal and coronal reform atted images were constructed. Dose reduction technique was used on this scan by utilizing automated exposure control and iterative reconstruction technique. The dose-length product (DLP) was 1620.18 mG y-cm. COMPARISON: 05/28/2024 FINDINGS: There is evidence of prior T12 corpectomy due to underlying pathologic compression fracture . There is additional probable pathologic compression fracture of T8, with central lytic lesion prese nt. There is mild compression deformity of T11 present. There is posterior fusion hardware from T6 th rough at least L2, with posterior rods and transpedicular screws present at multiple levels. There is increased lucency about the transpedicular screws seen from T6 through L1, which could reflect hardw are loosening. There are probable chronic interstitial changes or areas of scarring in the right lung. Probable righ t basilar pulmonary atelectasis, partially imaged. Probable minimal left pleural effusion and left ba silar atelectatic change. IVC filter noted. Impression: Prior T12 corpectomy with underlying pathologic compression fracture. Additional pathologic compressi on fracture of T8. Surrounding posterior fusion hardware from T6 through at least T2. Osseous and ort hopedic hardware alignment is stable from prior exam. Lucency again seen about all the transpedicular screws in the spine, which could reflect hardware loo sening. Reviewed, dictated and finalized at [facility]. Impression: Prior T12 corpectomy with underlying pathologic compression fracture. Additiona l pathologic compression fracture of T8. Surrounding posterior fusion hardware from T6 through at least T2. Osseous and orthopedic hardware alignment is stabl e from prior exam. Lucency again seen about all the transpedicular screws in the spine, which coul d reflect hardware loosening.
--- NOTE | 2025-04-26 11:47 | ED_ITS ---
HPI - Weakness General Chief complaint: Weakness Stated complaint: weakness; falls Time Seen by Provider: 04/26/25 11:47 Source: patient Mode of arrival: EMS Limitations: no limitations History of Present Illness HPI Narrative: Patient is a 45-year-old male with acute on chronic back pain and generalized weakness for the past week. He has taken multiple falls this week due to his weakness. No focal complaints. No fever or chills. He has shortness of breath but no chest pain. he has a midline midback abscess or lesion over the past month. It appears to be draining. MD Complaint: generalized weakness Onset (ago): week(s) ( One) Duration: constant Location: generalized Migration: none Severity: moderate Severity scale (1-10): 6 Quality: tingling, numbness and sharp Relieving factors: none Exacerbating factors: movement and exertion Context: other ( patient has chronic back pain with procedures and hardware as well as testicular cancer with metastatic disease in remission; he is here for weakness and falls over the past week; he also has a mid back abscess or infection for the past month) Associated symptoms: shortness of breath Related Data Home Medications ?Medication ?Instructions ?Recorded ?Confirmed ?Last Taken ?Type ondansetron HCl 4 mg tablet 4 mg PO Q8H PRN Nausea And Vomiting 06/22/21 01/27/22 Unknown History (Zofran) sertraline 50 mg tablet 50 mg PO DAILY 06/22/21 01/27/22 Unknown History Allergies Allergy/AdvReac Type Severity Reaction Status Date / Time nut - unspecified Allergy Anaphylaxis Verified 04/26/25 11:53 Penicillins Allergy Unknown Verified 04/26/25 11:53 Review of Systems 2 Review of Systems: All systems reviewed & are unremarkable except as noted in HPI and below Constitutional: Constitutional: Reports no additional constitutional complaints Eyes: Eyes: Reports no additional eye complaints ENT: Reports system reviewed and no additional complaints, except as documented Cardiovascular: Cardiovascular: Reports no additional cardiovascular complaints Respiratory: Respiratory: Reports no additional respiratory complaints Gastrointestinal: Gastrointestinal: Reports no additional gastrointestinal complaints Genitourinary: Genitourinary: Reports no additional male genitourinary complaints Musculoskeletal: Musculoskeletal: Reports no additional musculoskeletal complaints Integumentary/Breasts: Skin/Breast: Reports system reviewed and no additional complaints, except as docu Neurologic: Reports system reviewed and no additional complaints, except as documented Psychiatric: Psychiatric: Reports no additional psychiatric complaints Endocrine: Endocrine: Reports no additional endocrine complaints Hematologic/Lymphatic: Hematologic/Lymphatic: Reports no additional hematologic/lymphatic complaints Allergic/Immunologic: Allergic/Immunologic: Reports no additional allergic/immunologic complaints FOR[facility]LY [facility] Past Medical History Medical History Presence of IVC filter Lipoma Depression Anxiety HTN (hypertension) Testicular cancer Pulmonary embolism Surgical History Surgical History Back pain with history of spinal surgery Family History Family History Other Diabetes mellitus Hypertension Social History Social History Smoking status: Never smoker Alcohol intake: current Drinks per week: 4 Substance use: current Substance use type: marijuana Gender identity (if verbalized by the patient): Male Spiritual care concerns: No Exam 2 Const: General: ill appearing ( Pale and acutely ill appearing) N utritional Appearance: thin Orientation/consciousness: patient oriented x3 Limitations: no limitations HENMT: Head: normal to inspection Ears: external ears normal F ivania/Nose/Sinus: Normal external nose present Eyes: Conjunctivae: conjunctivae normal Pupils: Equal, round and reactive pupils present EOM: EOMs intact bilaterally Neck: Neck: normal visual inspection Chest: Chest palpation & inspection: normal inspection of the chest Resp: Effort & Inspection: normal respiratory effort and not labored A uscultation: clear to auscultation bilaterally and no crackles Cardio: Rate: tachycardic Rhythm: regular rhythm Heart sounds: no murmurs GI: Inspection: non-distended GI Palp: Yes Soft to palpation and No Tenderness to palpation present (GI) Auscultation: normal bowel sounds : General: Yes bladder normal to palpation Back/Spine/Pelvis: Back: no CVA tenderness Skin: General skin exam: No normal color, no jaundice and pallor Rashes: no rashes Wounds: no wounds Other: bluish finger tips and lips saturating normal range Neuro: General: patient oriented x3, moves all extremities, no meningeal signs, no focal motor deficits and CN's II-XI intact bilaterally Other: baseline gait is minimal with a walker or typically pivots and positions at home from a sitting position and does not have much mobility; this is all due to spinal changes after surgery chronically Extrem: General: normal to inspection Psych: Mental Status: mental status grossly normal Affect: normal affect Attitude: cooperative Course Vital Signs Vital signs: Vital Signs Temperature 36.7 C 04/26/25 11:40 Pulse Rate 126 H 04/26/25 11:40 Respiratory Rate 22 H 04/26/25 11:40 Blood Pressure 104/80 04/26/25 11:40 Pulse Oximetry 99 04/26/25 11:40 Oxygen Delivery Room Air 04/26/25 11:40 Temperature 36.7 C 04/26/25 11:40 Pulse Rate 111 H 04/26/25 13:31 Respiratory Rate 24 H 04/26/25 13:31 Blood Pressure 108/65 04/26/25 13:31 Pulse Oximetry 98 04/26/25 13:31 Oxygen Delivery Room Air 04/26/25 11:40 MDM - Weakness MDM Narrative Medical decision making narrative: patient is a 45-year-old male with generalized weakness and falls over the past week. We will do a septic workup as he is hypotensive, tachycardic and tachypneic. He has a area of infection of his mid back. Will take a picture of this area with CT scan. He is allergic to penicillin so I will use Levaquin as a broad-spectrum antibiotic and his CT scan 2023 was negative for aneurysm. Lab Data Attestation: I reviewed the patient's lab results. 04/26/25 12:24 04/26/25 12:24 Labs: Lab Results 04/26/25 04/26/25 04/26/25 Range/Units 12:14 12:23 12:24 WBC 10.9 H (4.8-10.8) K/mm3 RBC 3.81 L (4.70-6.10) M/mm3 Hgb 10.0 L (14.0-18.0) g/dL Hct 30.9 L (40.0-54.0) % MCV 81.1 (78.0-102.0) fL MCH 26.2 L (27.0-31.0) pg MCHC 32.4 (32-36) g/dL RDW 14.2 (11.6-14.4) % Plt Count 260 (150-420) K/mm3 MPV 8.6 L (8.7-11.0) fl Immature Gran % (Auto) 0.5 H (0.0-0.0) % Neut % (Auto) 91.8 H (50.0-70.0) % Lymph % (Auto) 3.0 L (18.0-42.0) % Irion % (Auto) 4.4 (2.0-11.0) % Eos % (Auto) 0.0 L (1.0-6.0) % Baso % (Auto) 0.3 (0.0-1.0) % Lymph # (Auto) 0.33 L (1.10-4.50) K/mm3 Irion # (Auto) 0.48 (0.10-0.90) K/mm3 Eos # (Auto) 0.00 L (0.02-0.50) K/mm3 Baso # (Auto) 0.03 (0.00-0.10) K/mm3 Abs Immat Gran (auto) 0.05 H (0.00-0.00) K/mm3 Absolute Neuts (auto) 9.98 H (1.70-7.20) K/mm3 Absolute Nucleated RBC 0.00 (0.00-0.00) K/mm3 Nucleated RBC % 0.0 (0-0.0) % PT 11.9 (9.50-12.1) Seconds INR 1.1 APTT 32.2 H (23.9-30.70) Sec D-Dimer 1.53 H (0.19-0.50) mg/L Sodium 122 L (137-145) mmol/L Potassium 5.7 H (3.4-5.0) mmol/L Chloride 90 L (98-107) mmol/L Carbon Dioxide 20 L (22-30) mmol/L Anion Gap 12 (4-12) mmol/L BUN 20 (9-20) mg/dL Creatinine 2.86 H (0.7-1.3) mg/dL Estim Creat Clear Calc 32 ml/min Estimated GFR 24 L (59 - ) Glucose 68 (65-110) mg/dL Calculated Osmolality 254 L (285-295) mOsm/kg Lactic Acid 1.7 (0.4-2.0) mmol/L Calcium 9.1 (8.4-10.2) mg/dL Magnesium 1.4 L (1.6-2.3) mg/dL Total Bilirubin 0.9 (0.2-1.3) mg/dL AST 80 H (17-59) U/L ALT 27 (6-50) U/L Alkaline Phosphatase 134 H (38-126) U/L Troponin I < 0.012 (0.000-0.034) ng/mL NT-Pro-B Natriuret Pep 1300 H (19.9-100) pg/mL Total Protein 7.7 (6.3-8.2) g/dL Albumin 3.7 (3.5-5.1) g/dL Imaging Data Attestation: I personally reviewed and interpreted this imaging study as follows: Radiologist's impression: CT thoracic spine shows chronic changes but no acute process (no contrast use due to creatinine) ECG Data EKG #1: Attestation: I personally reviewed and interpreted this ECG as follows: ECG completion date: 04/26/25 ECG completion time: 12:44 EKG Interpretation: tachycardia, sinus rhythm, no ectopy, no ST changes, normal QRS, normal QT and NL axis Critical Care Time Critical Care Time Critical Care Time: Yes Total Critical Care Time: 25 Discharge Plan Discharge Clinical Impression: Acute hyponatremia, Acute hyperkalemia, Weakness, Elevated d-dimer, EILEEN (acute kidney injury), Acute dehydration Sepsis Qualifiers: Sepsis type: sepsis due to unspecified organism Sepsis acute organ dysfunction status: unspecified Qualified Code(s): A41.9 - Sepsis, unspecified organism Patient Disposition: Acute Care Hospital Condition: Stable Patient Language: Ukrainian Prescriptions: No Action ondansetron HCl [Zofran] 4 mg Tablet 4 mg PO Q8H PRN (Reason: Nausea And Vomiting) sertraline 50 mg Tablet 50 mg PO DAILY lisinopril 10 mg Tablet 10 mg PO DAILY Qty: 30 0RF Follow-up/Referrals: Darnell,GERARDO Castillo [Primary Care Provider] - Time of Disposition: 13:59
--- NOTE | 2025-04-26 12:07 | ECG_ITS ---
Test Date: 2025-04-26 12:26:16 Measurements Intervals Melbeta Rate: 113 P: 57 AR: 175 QRS: 80 QRSD: 91 T: 30 QT: 337 QTc: 462 Interpretive Statements SINUS TACHYCARDIA LOW QRS VOLTAGE IN LIMB LEADS BASELINE ARTIFACT- II, III, AVF, V4-V6 ABNORMAL ECG No previous ECG available for comparison Electronically Signed On 04-26-2025 13:54:12 CDT by Enrico Case D.O.
[2025-04-26] MEDS: SODIUM CHLORIDE 0.9% IV 1,000 ML 999 ML IV CONT ×3 (12:16→14:54)
[2025-04-26] MEDS: levoFLOXacin 750 MG/D5W 150 ML 750 MG/150 ML BAG 100 MG IVPB (12:21)
[2025-04-26 12:31] LABS: Basophils Absolute Auto 0.03 K/mm3 (0.00-0.10); Basophils Percent Auto 0.3 % (0.0-1.0); Hematocrit 30.9 % (40.0-54.0); Immature Granulocyte Absolute 0.05 K/mm3 (0.00-0.00); Immature Granulocyte Percent A 0.5 % (0.0-0.0); Lymphocytes Absolute Auto 0.33 K/mm3 (1.10-4.50); Mean Corpuscular HGB Conc 32.4 g/dL (32-36); Mean Corpuscular Hemoglobin 26.2 pg (27.0-31.0); Mean Corpuscular Volume 81.1 fL (78.0-102.0); Mean Platelet Volume 8.6 fl (8.7-11.0); Monocytes Absolute Auto 0.48 K/mm3 (0.10-0.90); Monocytes Percent Auto 4.4 % (2.0-11.0); Neutrophils Absolute Auto 9.98 K/mm3 (1.70-7.20); Neutrophils Percent Auto 91.8 % (50.0-70.0); Platelet Count Result 260 K/mm3 (150-420); Red Blood Count 3.81 M/mm3 (4.70-6.10); Red Cell Distribution Width 14.2 % (11.6-14.4); White Blood Count 10.9 K/mm3 (4.8-10.8)
[2025-04-26 12:41] LABS: D Dimer 1.53 mg/L (0.19-0.50)
[2025-04-26 12:44] LABS: Alanine Aminotransferase 27 U/L (6-50); Albumin Level 3.7 g/dL (3.5-5.1); Alkaline Phosphatase 134 U/L (38-126); Anion Gap 12 mmol/L (4-12); Aspartate Amino Transferase 80 U/L (17-59); Bilirubin,Total 0.9 mg/dL (0.2-1.3); Blood Urea Nitrogen 20 mg/dL (9-20); Calcium 9.1 mg/dL (8.4-10.2); Carbon Dioxide 20 mmol/L (22-30); Chloride 90 mmol/L (98-107); Estimated CRCL calculation 32 ml/min; Estimated Glomerular Filt Rate 24; Glucose 68 mg/dL (65-110); Osmolality Calculated 254 mOsm/kg (285-295); Potassium 5.7 mmol/L (3.4-5.0); Sodium 122 mmol/L (137-145); Total Protein 7.7 g/dL (6.3-8.2)
[2025-04-26 12:44] LABS: Lactic Acid Reflex 1.7 mmol/L (0.4-2.0)
[2025-04-26 12:47] LABS: INR 1.1; Partial Thromboplastin Time 32.2 Sec (23.9-30.70); Prothrombin Time 11.9 Seconds (9.50-12.1)
[2025-04-26 12:53] LABS: NT Pro B Type Natriuretic Pept 1300 pg/mL (19.9-100)
[2025-04-26 12:56] LABS: Troponin I < 0.012 ng/mL (0.000-0.034)
[2025-04-26] MEDS: DEXTROSE 50% 25 GM/50 ML SYRINGE IV PUSH ×3 (13:01→15:15)
[2025-04-26] MEDS: INSULIN HUMAN REGULAR (*BKC) 1,000 UNITS/10 ML VIAL 10 UNITS IV PUSH (13:01)
[2025-04-26 13:06] LABS: Magnesium 1.4 mg/dL (1.6-2.3)
[2025-04-26 14:02] LABS: Glucose Point of Care 45 mg/dl (65-105)
[2025-04-26] MEDS: MAGNESIUM SULF 2 GM/WATER 50ML 2 GM/50 ML BAG IVPB (14:03)
[2025-04-26 15:00] LABS: Glucose Point of Care 60 mg/dl (65-105)
[2025-04-26] MEDS: NOREPINEPHRINE 8 MG/D5W 250 ML 8 MG/250 ML BAG 9.38 MG IV CONT (16:27)
[2025-04-26 16:30] LABS: Glucose Point of Care 139 mg/dl (65-105)
[2025-04-26] MEDS: VANCOMYCIN 1,000 MG/NS 250 ML 1,000 MG/250 ML BAG 250 MG IVPB (17:06)
--- NOTE | 2025-04-27 12:56 | PC.NURSE ---
preliminary rt hand no growth, blood culture.
--- NOTE | 2025-04-29 10:52 | PC.NURSE ---
preliminary blood cultures reviewed. gram positive cocci and staph aureus isolated.
--- NOTE | 2025-05-03 13:47 | PC.NURSE ---
FINAL BLOOD CULTURE REPORT; STAPHYLOCOCCUS AUREUS, PATIENT WAS TRANSFERRED TO [facility], CULTURE FAXED [phone]
== END 2025-04-26 17:15 | disposition short-term general hospital (02) ==
PROVIDERS: Emergency Provider Emergency Medicine; PCP Physician Assistant
DX: E87.1 Hypo-osmolality and hyponatremia (principal); A41.9 Sepsis, unspecified organism; E87.5 Hyperkalemia; R53.1 Weakness; R79.1 Abnormal coagulation profile; N17.9 Acute kidney failure, unspecified; E86.0 Dehydration; I10 Essential (primary) hypertension; Z85.47 Personal history of malignant neoplasm of testis
CPT/HCPCS: 36415; 71045; 72128; 80053; 82948; 83605; 83735; 83880; 84484; 85025; 85380; 85610; 85730; 87040; 87147; 87181; 93005; 96365; 96367; 96375; 96376; 99285; J1815; J1956; J3370; J3475; J7030